=== PATIENT | male | born 1940 | race Caucasian/White ===

== ENCOUNTER 2018-06-20 22:03 | Inpatient (IN) | payer OTHER, MEDICARE ==
--- NOTE | 2018-06-20 23:30 | RADIOLOGY REPORT (SQ) ---
EXAM DESCRIPTION: CT HEAD WITHOUT IV CONTRAST COMPLETED DATE/TME: 06/20/2018 22:48 CLINICAL HISTORY: Pain. 78 years Male, fall COMPARISON: None. TECHNIQUE: No contrast. This exam was performed according to our departmental dose-optimization program, which includes automated exposure control, adjustment of the mA and/or kV according to patient size and/or use of iterative reconstruction technique. FINDINGS: Prominence of the ventricular system probably due to parenchymal volume loss. No hemorrhage or infarct. No mass, mass effect, or midline shift. White matter microangiopathy, parenchymal volume loss, and atherosclerosis. Moderate left sphenoid, ethmoid, and right maxillary mucus and fluid occlusion. Brain and extra-axial structures appear otherwise intact. IMPRESSION: Pansinusitis with air-fluid levels indicating acute inflammatory components. No acute intracranial finding.
[2018-06-20] MEDS ORDERED: ACETAMINOPHEN 325 MG TABLET PO ONE (23:45)
[2018-06-20] MEDS ORDERED: NORMAL SALINE 1000 ML 1,000 ML IV ONE (23:45)
--- NOTE | 2018-06-20 23:46 | ER Document Report ---
ED General - General Chief Complaint: Altered Mental Status Stated Complaint: AMS Time Seen by Provider: 06/20/18 22:48 Primary Care Provider: GERDA TILLEY MD [Primary Care Provider] - Follow up as needed Cannot obtain history due to: Dementia, Altered mental status Notes: Patient is an 78-year-old male with a past medical history of essential hypertension, hyperlipidemia, mild cognitive impairment at baseline, presents with his family due to concerns of increasing altered mental status over the last 24 hours. The patient is visiting from [place]. Family states that he did have influenza approximately a week ago, has not fully recovered since that time. However they do note over the past 24 hours the patient has seemed increasingly confused, disoriented to everything except his name. They state this is not normal for the patient and that normally he would be able to discuss daily events and be oriented x3. The patient himself is unable to provide any meaningful history. Family has not noted anything seems to improve or worsen his symptoms. They cannot recall whether or not he has had similar symptoms in the past. TRAVEL OUTSIDE OF THE [place] IN LAST 30 DAYS: No - Related Data Allergies/Adverse Reactions: No Known Allergies Allergy (Unverified 06/20/18 22:48) Past Medical History - General Information source: Relative - Social History Smoking Status: Never Smoker Chew tobacco use (# tins/day): Yes Frequency of alcohol use: None Drug Abuse: None Lives with: Family Family History: Reviewed & Not Pertinent Patient has suicidal ideation: No Patient has homicidal ideation: No Renal/ Medical History: Denies: Hx Peritoneal Dialysis Review of Systems - Review of Systems Notes: Constitutional: Positive for fever. Positive for confusion HENT: Negative for sore throat. Eyes: Negative for visual changes. Cardiovascular: Negative for chest pain. Respiratory: Negative for shortness of breath. Gastrointestinal: Negative for abdominal pain, vomiting or diarrhea. Genitourinary: Negative for dysuria. Musculoskeletal: Negative for back pain. Skin: Negative for rash. Neurological: Negative for headaches, weakness or numbness. 10 point ROS negative except as marked above and in HPI. Physical Exam - Vital signs Vitals: Pulse Resp BP Pulse Ox 79 24 H 104/62 94 06/20/18 22:25 06/20/18 22:25 06/20/18 22:25 06/20/18 22:25 Interpretation: Tachypneic Notes: PHYSICAL EXAMINATION: GENERAL: Moderately ill in appearance but in no acute distress HEAD: Atraumatic, normocephalic. EYES: Pupils equal round and reactive to light, extraocular movements intact, sclera anicteric, conjunctiva are normal. ENT: nares patent, oropharynx clear without exudates. Moist mucous membranes. NECK: Normal range of motion, supple without lymphadenopathy LUNGS: Breath sounds clear to auscultation bilaterally and equal. No wheezes rales or rhonchi. HEART: Regular tachycardia without murmurs ABDOMEN: Soft, nontender, normoactive bowel sounds. No guarding, no rebound. No masses appreciated. EXTREMITIES: Normal range of motion, no pitting or edema. No cyanosis. NEUROLOGICAL: Face symmetric. Tongue protrudes midline. Extraocular motions intact. Pupils are 2 mm and equally reactive. Normal speech. 5 out of 5 strength in both the distal and proximal upper and lower extremities bilaterally. Sensation is grossly intact throughout. PSYCH: alert, oriented to person only SKIN: Warm, Dry, normal turgor, no rashes or lesions noted. Course - Re-evaluation Re-evalutation: 06/20/18 23:43 Patient presents with family who is concerned that he has had increased altered mental status over the last 24 hours. Patient is not oriented to anything beyond his name which family at the bedside states is not at all normal for him. He has no focal neurologic deficits on exam. The bili did have a fall within the last 1 week and struck his head and neck as well as his left shoulder. X- ray of the shoulder is pending, CT the head without any evidence of any acute intracranial injury. Patient was found to be febrile to 101.1 F indicating a probable infectious etiology of the patient's increasing altered mental status. Urinalysis, chest x-ray, influenza testing, cultures and lactate are all pending. Patient is here visiting from [place], no local primary 06/21/18 02:38 Labs reviewed prominent leukocytosis, urinalysis otherwise clear. No additional findings on laboratory assessment. Flu likewise negative. CT of the head, cervical spine, chest x-ray left shoulder x-ray all unremarkable. CT the head does reveal prominent sinusitis which may be the source of the patient's fever and leukocytosis. The patient is laughing, joking with me. Denies headache or neck pain. Does admit to some sinus fullness. I do not believe he requires a lumbar puncture at this time given the normal mental status, absence of headache or meningismus. I did discuss with Dr. Khadar Lyons who has accepted patient f or admission. Recommends initiation of levofloxacin for sinusitis. - Vital Signs Vital signs: Temp Pulse Resp BP Pulse Ox 98.2 F 79 22 H 116/61 94 06/21/18 01:25 06/20/18 22:25 06/21/18 02:01 06/21/18 02:01 06/21/18 02:01 - Laboratory Result Diagrams: 06/20/18 23:40 06/20/18 23:40 Laboratory results interpreted by me: 06/20/18 06/20/18 06/21/18 23:40 23:40 00:40 WBC 23.4 H RBC 4.08 L Hgb 13.0 L Hct 36.6 L Seg Neuts % (Manual) 83 H Lymphocytes % (Manual) 10 L Abs Neuts (Manual) 19.4 H Abs Basophils (Manual) 0.5 H Sodium 136.7 L Chloride 95 L BUN 24 H Glucose 132 H AST 85 H ALT 86 H Urine Ketones TRACE H Urine Ascorbic Acid 40 H - Diagnostic Test Radiology reviewed: Image reviewed, Reports reviewed Radiology results interpreted by me: 06/21/18 02:38 CT head: No acute intracranial bleed or mass, sinusitis Chest x-ray: No acute infiltrate Discharge - Discharge Clinical Impression: Sepsis Qualifiers: Sepsis type: sepsis due to unspecified organism Qualified Code(s): A41.9 - Se psis, unspecified organism Altered mental status Qualifiers: Altered mental status type: disorientation Qualified Code(s): R41.0 - Disorientation, unspecified Sinusitis Qualifiers: Sinusitis location: unspecified location Chronicity: acute Recurrence: not specified as recurrent Qualified Code(s): J01.90 - Acute sinusitis, unspecified Condition: Fair Disposition: ADMITTED OBSERVATION Admitting Provider: Hospitalist Unit Admitted: Medical Floor Referrals: GERDA TILLEY MD [Primary Care Provider] - Follow up as needed
--- NOTE | 2018-06-20 23:49 | RADIOLOGY REPORT (SQ) ---
EXAM DESCRIPTION: XR SHOULDER 2 OR MORE VIEWS COMPLETED DATE/TME: 06/20/2018 22:48 CLINICAL HISTORY: Pain. 78 years Male, fall COMPARISON: None. Findings: Small osteophytes of the left inferior glenohumeral joint. Bones, joints, and soft tissues of the LEFT XR SHOULDER 2 OR MORE VIEWS appear otherwise unremarkable. Sternotomy. IMPRESSION: No acute findings.
[2018-06-21 00:02] LABS: HEMATOCRIT 36.6 % (37.9-51.0); MEAN CORPUSCULAR HGB CONC 35.6 g/dL (32.0-36.0); MEAN CORPUSCULAR VOLUME 90 fl (80-97); PLATELET COUNT 435 10^3/uL (150-450); RED BLOOD COUNT 4.08 10^6/uL (4.35-5.55); RED CELL DISTRIBUTION WIDTH 13.6 % (11.5-14.0); WHITE BLOOD COUNT 23.4 10^3/uL (4.0-10.5)
--- NOTE | 2018-06-21 00:04 | RADIOLOGY REPORT (SQ) ---
EXAM DESCRIPTION: CT CERVICAL SPINE WITHOUT IV CONTRAST COMPLETED DATE/TME: 06/20/2018 22:48 CLINICAL HISTORY: Pain. 78 years Male, fall Comparison: None. Technique: No contrast. Coronal and sagittal reformat. This exam was performed according to our departmental dose-optimization program, which includes automated exposure control, adjustment of the mA and/or kV according to patient size and/or use of iterative reconstruction technique.[facility]: Dose Right [facility]: CareDose [facility]: Dose Right [facility]: Teradose 4D [facility]: PickUpPal LIMITATIONS: Motion artifact. Findings: Moderate disc bulge at the C5-C6 and C6-C7 levels, moderate mid and lower cervical spondylosis, moderate-severe bilateral C6 and C7 bony foraminal stenosis, right more than left. Deformity of the right mid clavicle indicative of prior injury or motion artifact. Sternotomy. Normal alignment. Normal curvature. No fracture. Normal vertebral heights. Partially imaged nuchal soft tissues, inferior cranium, and upper thorax appear otherwise grossly intact. IMPRESSION: No acute findings.
[2018-06-21 00:12] LABS: ALANINE AMINOTRANSFERASE 86 U/L (21-72); ALBUMIN 3.6 g/dL (3.5-5.0); ALKALINE PHOSPHATASE 97 U/L (38-126); ANION GAP 12 (5-19); ASPARTATE AMINO TRANSFERASE 85 U/L (17-59); BILIRUBIN,DIRECT 0.4 mg/dL (0.0-0.4); BILIRUBIN,TOTAL 1.3 mg/dL (0.2-1.3); BLOOD UREA NITROGEN 24 mg/dL (7-20); CALCIUM 8.9 mg/dL (8.4-10.2); CARBON DIOXIDE 30 mmol/L (22-30); CHLORIDE 95 mmol/L (98-107); CREATINE KINASE 83 U/L (55-170); GLUCOSE 132 mg/dL (75-110); POTASSIUM 3.8 mmol/L (3.6-5.0); SODIUM 136.7 mmol/L (137-145); TOTAL PROTEIN 7.1 g/dL (6.3-8.2)
[2018-06-21 00:44] LABS: ABSOLUTE LYMPHOCYTES# (MANUAL) 2.3 10^3/uL (0.5-4.7); ABSOLUTE MONOCYTES # (MANUAL) 1.2 10^3/uL (0.1-1.4); ABSOLUTE NEUTROPHILS# (MANUAL) 19.4 10^3/uL (1.7-8.2); BASOPHILS % (MANUAL) 2 % (0-2); EOSINOPHILS % (MANUAL) 0 % (0-6); LYMPHOCYTES % (MANUAL) 10 % (13-45); MONOCYTES % (MANUAL) 5 % (3-13); SEGMENTED NEUTROPHILS % (MAN) 83 % (42-78); TOTAL CELLS COUNTED 100
[2018-06-21 00:46] LABS: HELMET CELLS SLIGHT; PLATELET COMMENT ADEQUATE; POIKILOCYTOSIS SLIGHT; TEAR DROP CELLS SLIGHT; TOXIC GRANULATION 1+; TOXIC VACUOLATION PRESENT
[2018-06-21 01:11] LABS: APPEARANCE,URINE CLEAR; BILIRUBIN,URINE NEGATIVE (NEGATIVE); COLOR,URINE YELLOW; GLUCOSE, URINE NEGATIVE (NEGATIVE); KETONES,URINE TRACE mg/dL (NEGATIVE); LEUKOCYTE ESTERASE,URINE NEGATIVE (NEGATIVE); NITRITE,URINE NEGATIVE (NEGATIVE); PROTEIN,URINE NEGATIVE (NEGATIVE); URINE SPECIFIC GRAVITY 1.021; UROBILINOGEN,URINE NEGATIVE mg/dL (<2.0)
[2018-06-21 01:12] LABS: A TYPE INFLUENZA AG NEGATIVE (NEGATIVE); B INFLUENZA AG NEGATIVE (NEGATIVE)
[2018-06-21] MEDS ORDERED: NORMAL SALINE 1000 ML 1,000 ML IV ONE (01:24)
--- NOTE | 2018-06-21 01:32 | RADIOLOGY REPORT (SQ) ---
EXAM DESCRIPTION: XR CHEST 1 VIEW COMPLETED DATE/TME: 06/20/2018 23:45 CLINICAL HISTORY: 78 years Male, fever COMPARISON: None. NUMBER OF VIEWS/TECHNIQUE: 1/AP FINDINGS: Adequate lung volume, clear parenchyma, normal cardiac silhouette, and sternotomy. Cardiac/mediastinal hardware/clips. IMPRESSION: No acute cardiopulmonary findings.
[2018-06-21] MEDS ORDERED: CEFEPIME 2 GM/D5W RTU 2 GM/50 ML RTUPB IV ONE (02:00)
[2018-06-21] MEDS ORDERED: MAG HYDROX/AL HYDROX/SIMETH SUSP 30 ML UDCUP PO PRN (02:35)
[2018-06-21] MEDS ORDERED: MAGNESIUM HYDROXIDE SUSP 30 ML UDCUP PO PRN (02:35)
[2018-06-21] MEDS ORDERED: IPRATROPIUM/ALBUTEROL 0.5-2.5 MG/3 ML AMPUL NEB PRN (02:35)
[2018-06-21] MEDS ORDERED: HYDRALAZINE HCL INJ/PF 20 MG/1 ML SDV IV PRN (02:38)
[2018-06-21] MEDS ORDERED: LEVOFLOXACIN 750 MG/D5W RTU 750 MG/150 ML RTUPB IV ONE (03:00)
--- NOTE | 2018-06-21 04:37 | PDOC H&P ---
History of Present Illness Admission Date/PCP: 06/21/18 03:13 GERDA TILLEY MD Patient complains of: Fever and altered mental status History of Present Illness: RADHA DUBOIS is a 78 year old male with a past medical history of hypertension, dyslipidemia, remote coronary artery bypass graft and dementia. Patient is from [place] visiting family and noted to have mental status changes of the last 24 hours associated with a fever. He is also noted to have rhinorrhea and a postnasal drip. Workup reveals leukocytosis in the 20s. CT reveals pansinusitis with air-fluid levels. He started on empiric antibiotics and referred to the hospitalist for admission. Patient denies recent antibiotic use and complains of fullness in the ears. Past Medical History Cardiac Medical History: Reports: Coronary Artery Disease, Hyperlipidema, Hypertension Psychiatric Medical History: Reports: Dementia Social History Information Source: Patient Lives with: Family Smoking Status: Never Smoker Frequency of Alcohol Use: Rare Drugs: None - Advance Directive Resuscitation Status: Full Code Family History Family History: Hypertension Parental Family History Reviewed: Yes Children Family History Reviewed: Yes Sibling(s) Family History Reviewed.: Yes Medication/Allergy Allergies/Adverse Reactions: No Known Allergies Allergy (Unverified 06/20/18 22:48) Review of Systems Constitutional: ABSENT: chills, fever(s), headache(s), weight gain, weight loss Eyes: ABSENT: visual disturbances Ears: ABSENT: hearing changes Cardiovascular: ABSENT: chest pain, dyspnea on exertion, edema, orthropnea, palpitations Respiratory: ABSENT: cough, hemoptysis Gastrointestinal: ABSENT: abdominal pain, constipation, diarrhea, hematemesis, hematochezia, nausea, vomiting Genitourinary: ABSENT: dysuria, hematuria Musculoskeletal: ABSENT: joint swelling Integumentary: ABSENT: rash, wounds Neurological: ABSENT: abnormal gait, abnormal speech, confusion, dizziness, focal weakness, syncope Psychiatric: ABSENT: anxiety, depression, homidical ideation, suicidal ideation Endocrine: ABSENT: cold intolerance, heat intolerance, polydipsia, polyuria Hematologic/Lymphatic: ABSENT: easy bleeding, easy bruising Physical Exam Vital Signs: Temp Pulse Resp BP Pulse Ox 98.2 F 79 22 H 116/61 94 06/21/18 01:25 06/20/18 22:25 06/21/18 02:01 06/21/18 02:01 06/21/18 02:01 Intake & Output 06/19/18 06/20/18 06/21/18 11:59 11:59 11:59 Intake Total 1000 Balance 1000 Weight 82.7 kg General appearance: PRESENT: no acute distress, well-developed, well-nourished Head exam: PRESENT: atraumatic, normocephalic, other - Discomfort with percussion to the frontal and maxillary sinuses. Eye exam: PRESENT: conjunctiva pink, EOMI, PERRLA. ABSENT: scleral icterus Ear exam: PRESENT: normal external ear exam Mouth exam: PRESENT: moist, tongue midline Neck exam: ABSENT: carotid bruit, JVD, lymphadenopathy, thyromegaly Respiratory exam: PRESENT: clear to auscultation temitope. ABSENT: rales, rhonchi, wheezes Cardiovascular exam: PRESENT: RRR. ABSENT: diastolic murmur, rubs, systolic murmur Pulses: PRESENT: normal dorsalis pedis pul Vascular exam: PRESENT: normal capillary refill GI/Abdominal exam: PRESENT: normal bowel sounds, soft. ABSENT: distended, guarding, mass, organolmegaly, rebound, tenderness Rectal exam: PRESENT: deferred Extremities exam: PRESENT: full ROM. ABSENT: calf tenderness, clubbing, pedal edema Neurological exam: PRESENT: alert, awake, oriented to person, oriented to place, oriented to time, oriented to situation, CN II-XII grossly intact. ABSENT: motor sensory deficit Psychiatric exam: PRESENT: appropriate affect, normal mood. ABSENT: homicidal ideation, suicidal ideation Skin exam: PRESENT: dry, intact, warm. ABSENT: cyanosis, rash Results Laboratory Results: 06/20/18 23:40 06/20/18 23:40 06/20/18 06/20/18 06/20/18 23:40 23:40 23:40 WBC 23.4 H RBC 4.08 L Hgb 13.0 L Hct 36.6 L MCV 90 MCH 32.0 MCHC 35.6 RDW 13.6 Plt Count 435 Seg Neutrophils % Not Reportable Lymphocytes % Not Reportable Monocytes % Not Reportable Eosinophils % Not Reportable Basophils % Not Reportable Absolute Neutrophils Not Reportable Absolute Lymphocytes Not Reportable Absolute Monocytes Not Reportable Absolute Eosinophils Not Reportable Absolute Basophils Not Reportable Sodium 136.7 L Potassium 3.8 Chloride 95 L Carbon Dioxide 30 Anion Gap 12 BUN 24 H Creatinine 1.02 Est GFR ( Amer) > 60 Est GFR (Non-Af Amer) > 60 Glucose 132 H Lactic Acid 1.6 Calcium 8.9 Total Bilirubin 1.3 AST 85 H ALT 86 H Alkaline Phosphatase 97 Total Protein 7.1 Albumin 3.6 Urine Color Urine Appearance Urine pH Ur Specific Portal Urine Protein Urine Glucose (UA) Urine Ketones Urine Blood Urine Nitrite Ur Leukocyte Esterase Urine WBC (Auto) Urine RBC (Auto) 06/21/18 00:40 WBC RBC Hgb Hct MCV MCH MCHC RDW Plt Count Seg Neutrophils % Lymphocytes % Monocytes % Eosinophils % Basophils % Absolute Neutrophils Absolute Lymphocytes Absolute Monocytes Absolute Eosinophils Absolute Basophils Sodium Potassium Chloride Carbon Dioxide Anion Gap BUN Creatinine Est GFR ( Amer) Est GFR (Non-Af Amer) Glucose Lactic Acid Calcium Total Bilirubin AST ALT Alkaline Phosphatase Total Protein Albumin Urine Color YELLOW Urine Appearance CLEAR Urine pH 6.0 Ur Specific Portal 1.021 Urine Protein NEGATIVE Urine Glucose (UA) NEGATIVE Urine Ketones TRACE H Urine Blood NEGATIVE Urine Nitrite NEGATIVE Ur Leukocyte Esterase NEGATIVE Urine WBC (Auto) 0 Urine RBC (Auto) 0 06/20/18 06/20/18 23:40 23:40 Creatine Kinase 83 Troponin I < 0.012 Impressions: Cervical Spine CT 06/20/18 22:48 IMPRESSION: No acute findings. Head CT 06/20/18 22:48 IMPRESSION: Pansinusitis with air-fluid levels indicating acute inflammatory components. No acute intracranial finding. Shoulder X-Ray 06/20/18 22:48 IMPRESSION: No acute findings. Chest X-Ray 06/20/18 23:45 IMPRESSION: No acute cardiopulmonary findings. Assessment and Plan - Diagnosis (1) Sinusitis Qualifiers: Sinusitis location: unspecified location Chronicity: acute Recurrence: not specified as recurrent Qualified Code(s): J01.90 - Acute sinusitis, unspecified Is this a current diagnosis for this admission?: Yes Plan: Pansinusitis, no recent antibiotics, Levaquin initiated empirically. Follow-up blood and sputum culture (2) Sepsis Qualifiers: Sepsis type: sepsis due to unspecified organism Qualified Code(s): A41.9 - Sepsis, unspecified organism Is this a current diagnosis for this admission?: Yes Plan: Likely secondary to #1, follow-up lactic acid and blood culture. (3) Altered mental status Qualifiers: Altered mental status type: disorientation Qualified Code(s): R41.0 - Disorientation, unspecified Is this a current diagnosis for this admission?: Yes Plan: Complicated by baseline dementia, likely secondary to #1, supportive care - Time Time Spent with patient: 25-34 minutes - Inpatient Certification Medical Necessity: Need Close Monitoring Due to Risk of Patient Decompensation
[2018-06-21 06:35] LABS: ABSOLUTE BASOPHILS # (AUTO) 0.1 10^3/uL (0.0-0.2); ABSOLUTE LYMPHOCYTES (AUTO) 1.7 10^3/uL (0.5-4.7); ABSOLUTE MONOCYTES (AUTO) 1.2 10^3/uL (0.1-1.4); ABSOLUTE NEUT (AUTO) 13.8 10^3/uL (1.7-8.2); BASOPHILS % (AUTO) 0.4 % (0-2); EOSINOPHILS % (AUTO) 0.3 % (0-6); HEMATOCRIT 32.8 % (37.9-51.0); HEMOGLOBIN 11.7 g/dL (13.5-17.0); LYMPHOCYTES % (AUTO) 10.3 % (13-45); MEAN CORPUSCULAR HEMOGLOBIN 31.8 pg (27.0-33.4); MEAN CORPUSCULAR HGB CONC 35.6 g/dL (32.0-36.0); MEAN CORPUSCULAR VOLUME 90 fl (80-97); PLATELET COUNT 352 10^3/uL (150-450); RED BLOOD COUNT 3.66 10^6/uL (4.35-5.55); RED CELL DISTRIBUTION WIDTH 13.8 % (11.5-14.0); TOTAL CELLS COUNTED % (AUTO) 100 %; WHITE BLOOD COUNT 16.8 10^3/uL (4.0-10.5)
[2018-06-21] MEDS: CHLORPHENIRAMINE MALEATE 4 MG TABLET PO SCH ×3 (07:32→17:24)
[2018-06-21] MEDS: HEPARIN SOD (PORCINE) 5,000 UNIT/ML 1 ML SYRINGE SUBCUT SCH ×3 (07:35→21:47)
[2018-06-21] MEDS: IPRATROPIUM/ALBUTEROL 0.5-2.5 MG/3 ML AMPUL NEB SCH ×2 (07:47→16:06)
[2018-06-21] MEDS: ASPIRIN 325 MG TABLET, ENT COATED PO SCH (09:41)
[2018-06-21] MEDS: CARVEDILOL 6.25 MG TABLET PO SCH ×2 (09:41→21:47)
[2018-06-21] MEDS: OMEGA-3 ACID ETHYL ESTERS 1 GM CAPSULE PO SCH ×2 (09:41→17:24)
[2018-06-21] MEDS: DOCUSATE SODIUM 100 MG CAPSULE PO SCH ×2 (09:41→17:24)
[2018-06-21] MEDS: CLOPIDOGREL BISULFATE 75 MG TABLET PO SCH (09:41)
--- NOTE | 2018-06-21 09:48 | EKG REPORT ---
SEVERITY:- ABNORMAL ECG - SINUS RHYTHM ATRIAL PREMATURE COMPLEX PROBABLE LEFT ATRIAL ABNORMALITY INCOMPLETE RIGHT BUNDLE BRANCH BLOCK PROBABLE INFERIOR INFARCT, AGE INDETERMINATE : Confirmed by: Brooke Mccain MD 21-Jun-2018 09:48:11
[2018-06-21] MEDS: FLUTICASONE NASAL SPRAY 50 MCG/SPRY 120 SPRAY/16 GM NASL SCH ×2 (09:50→21:47)
[2018-06-21] MEDS: ACETAMINOPHEN 325 MG TABLET PO PRN (15:56)
[2018-06-21] MEDS ORDERED: KETOROLAC TROMETHAMINE INJ/PF 30 MG/1 ML SDV IV PRN (19:30)
--- NOTE | 2018-06-21 19:35 | Progress Note ---
Provider Note Provider Note: RADHA DUBOIS is a 78 year old male with a past medical history of hypertension, dyslipidemia, remote coronary artery bypass graft and dementia admitted early this morning by the [employer] INSPECTOR for Sepsis secondary to Sinusitis. Overnight events, imaging, and laboratory results reviewed. Agree with the plan of care as established by the previous provider. (1) Sinusitis Pansinusitis w/ air-fluid levels noted on Head CT. Levaquin initiated empirically; WBC trending down, continues to be febrile and encephalopathic. Continue Flonase and Chlorpheniramine Tylenol as needed for fever/discomfort. Toradol as needed for moderate pain. Avoid narcotics as able secondary to AMS. Blood and sputum culture pending. (2) Sepsis Likely secondary to #1 Lactic acid 1.6-> 0.8 Cultures and antibiotics as above. (3) Altered mental status Complicated by baseline dementia, likely secondary to #1, supportive care
[2018-06-21] MEDS: SIMVASTATIN 40 MG TABLET PO SCH (21:47)
[2018-06-22] MEDS: IPRATROPIUM/ALBUTEROL 0.5-2.5 MG/3 ML AMPUL NEB SCH ×4 (00:05→19:52)
[2018-06-22 05:40] LABS: ABSOLUTE BASOPHILS # (AUTO) 0.1 10^3/uL (0.0-0.2); ABSOLUTE LYMPHOCYTES (AUTO) 1.7 10^3/uL (0.5-4.7); ABSOLUTE NEUT (AUTO) 13.3 10^3/uL (1.7-8.2); BASOPHILS % (AUTO) 0.5 % (0-2); EOSINOPHILS % (AUTO) 0.3 % (0-6); HEMATOCRIT 34.1 % (37.9-51.0); HEMOGLOBIN 11.9 g/dL (13.5-17.0); LYMPHOCYTES % (AUTO) 10.8 % (13-45); MEAN CORPUSCULAR HEMOGLOBIN 31.4 pg (27.0-33.4); MEAN CORPUSCULAR HGB CONC 35.1 g/dL (32.0-36.0); MEAN CORPUSCULAR VOLUME 90 fl (80-97); MONOCYTES % (AUTO) 6.4 % (3-13); PLATELET COUNT 405 10^3/uL (150-450); RED CELL DISTRIBUTION WIDTH 13.6 % (11.5-14.0); TOTAL CELLS COUNTED % (AUTO) 100 %; WHITE BLOOD COUNT 16.2 10^3/uL (4.0-10.5)
[2018-06-22] MEDS: HEPARIN SOD (PORCINE) 5,000 UNIT/ML 1 ML SYRINGE SUBCUT SCH ×3 (05:54→22:44)
[2018-06-22] MEDS: CHLORPHENIRAMINE MALEATE 4 MG TABLET PO SCH (05:55)
[2018-06-22 06:03] LABS: ANION GAP 12 (5-19); BLOOD UREA NITROGEN 16 mg/dL (7-20); CALCIUM 8.5 mg/dL (8.4-10.2); CARBON DIOXIDE 27 mmol/L (22-30); CHLORIDE 98 mmol/L (98-107); GLUCOSE 105 mg/dL (75-110); POTASSIUM 3.9 mmol/L (3.6-5.0); SODIUM 136.6 mmol/L (137-145)
[2018-06-22] MEDS ORDERED: LEVOFLOXACIN 750 MG/D5W RTU 750 MG/150 ML RTUPB IV SCH (08:00)
[2018-06-22] MEDS: DOCUSATE SODIUM 100 MG CAPSULE PO SCH ×2 (09:50→17:10)
[2018-06-22] MEDS: ASPIRIN 325 MG TABLET, ENT COATED PO SCH (09:52)
[2018-06-22] MEDS: OMEGA-3 ACID ETHYL ESTERS 1 GM CAPSULE PO SCH ×2 (09:52→17:13)
[2018-06-22] MEDS: CLOPIDOGREL BISULFATE 75 MG TABLET PO SCH (09:52)
[2018-06-22] MEDS: CARVEDILOL 6.25 MG TABLET PO SCH ×2 (09:52→22:44)
[2018-06-22] MEDS: FLUTICASONE NASAL SPRAY 50 MCG/SPRY 120 SPRAY/16 GM NASL SCH ×2 (10:09→22:43)
--- NOTE | 2018-06-22 17:25 | PDOC PROGRESS REPORT ---
Subjective Progress Note for:: 06/22/18 Subjective:: RADHA DUBOIS is a 78 year old male with a past medical history of hypertension, dyslipidemia, remote coronary artery bypass graft and dementia admitted 06/21/2018 for sepsis secondary to sinusitis. The patient was seen on afternoon rounds; no family members were present. He was found resting in bed comfortably on room air. He is awake, alert, and oriented to self only. He is conversationally appropriate and pleasantly confused. He tells me that he is feeling fine and has no complaints today. He denies fever, headache, facial pain, chest pain, difficulty breathing, cough, and shoulder pain. He has no questions at this time. Per nursing, the patient has continued to complain of intermittent shoulder pain with mobility but otherwise has been much improved today. Nursing reports increased alertness, conversational, more easily reoriented/redirected, without impulsivity as noted yesterday. Reason For Visit: SEPSIS,ACUTE ENCEPHALOPHATHY,SINUSITIS Physical Exam Vital Signs: Temp Pulse Resp BP Pulse Ox 98.7 F 78 17 112/61 95 06/22/18 15:50 06/22/18 15:50 06/22/18 15:50 06/22/18 15:50 06/22/18 15:50 Intake & Output 06/21/18 06/22/18 06/23/18 06:59 06:59 06:59 Intake Total 2049 550 150 Output Total 20 Balance 2049 530 150 Weight 83.6 kg 84.1 kg 84.1 kg General appearance: PRESENT: no acute distress, well-developed, well-nourished Head exam: PRESENT: atraumatic, normocephalic Eye exam: PRESENT: conjunctiva pink, EOMI, PERRLA. ABSENT: scleral icterus Mouth exam: PRESENT: moist, tongue midline Teeth exam: PRESENT: poor dentation Respiratory exam: PRESENT: clear to auscultation temitope, symmetrical, unlabored. ABSENT: rales, rhonchi, wheezes Cardiovascular exam: PRESENT: RRR. ABSENT: diastolic murmur, rubs, systolic murmur Pulses: PRESENT: normal dorsalis pedis pul Vascular exam: PRESENT: normal capillary refill GI/Abdominal exam: PRESENT: normal bowel sounds, soft. ABSENT: distended, guarding, mass, organolmegaly, rebound, tenderness Rectal exam: PRESENT: deferred Extremities exam: PRESENT: full ROM. ABSENT: calf tenderness, clubbing, pedal edema Neurological exam: PRESENT: alert, awake, oriented to person, CN II-XII grossly intact, other - Pleasantly confused. ABSENT: oriented to place, oriented to time, oriented to situation, motor sensory deficit Psychiatric exam: PRESENT: appropriate affect, normal mood. ABSENT: homicidal ideation, suicidal ideation Skin exam: PRESENT: dry, intact, warm. ABSENT: cyanosis, rash Results Laboratory Results: 06/22/18 04:25 06/22/18 04:25 06/22/18 06/22/18 04:25 04:25 WBC 16.2 H RBC 3.80 L Hgb 11.9 L Hct 34.1 L MCV 90 MCH 31.4 MCHC 35.1 RDW 13.6 Plt Count 405 Seg Neutrophils % 82.0 H Lymphocytes % 10.8 L Monocytes % 6.4 Eosinophils % 0.3 Basophils % 0.5 Absolute Neutrophils 13.3 H Absolute Lymphocytes 1.7 Absolute Monocytes 1.0 Absolute Eosinophils 0.0 Absolute Basophils 0.1 Sodium 136.6 L Potassium 3.9 Chloride 98 Carbon Dioxide 27 Anion Gap 12 BUN 16 Creatinine 0.81 Est GFR ( Amer) > 60 Est GFR (Non-Af Amer) > 60 Glucose 105 Calcium 8.5 06/20/18 06/20/18 23:40 23:40 Creatine Kinase 83 Troponin I < 0.012 Impressions: Cervical Spine CT 06/20/18 22:48 IMPRESSION: No acute findings. Head CT 06/20/18 22:48 IMPRESSION: Pansinusitis with air-fluid levels indicating acute inflammatory components. No acute intracranial finding. Shoulder X-Ray 06/20/18 22:48 IMPRESSION: No acute findings. Chest X-Ray 06/20/18 23:45 IMPRESSION: No acute cardiopulmonary findings. Assessment and Plan - Diagnosis (1) Sinusitis Qualifiers: Sinusitis location: unspecified location Chronicity: acute Recurrence: not specified as recurrent Qualified Code(s): J01.90 - Acute sinusitis, unspecified Is this a current diagnosis for this admission?: Yes Plan: Improved; patient is now comfortable, afebrile x 24 hours, WBC trending down. Blood cultures negative at 24 hours. Sputum cultures ordered and not yet obtained. Patient was admitted to the medical floor. He was empirically placed on IV Levaquin; have transition to p.o. today. Day #2 Continue Flonase and Chlorpheniramine. [place] as needed. Tylenol as needed for fever/discomfort. Toradol as needed for moderate pain. Avoid narcotics as able secondary to AMS. (2) Sepsis Qualifiers: Sepsis type: sepsis due to unspecified organism Qualified Code(s): A41.9 - Sepsis, unspecified organism Is this a current diagnosis for this admission?: Yes Plan: Improved; patient has been afebrile times 24 hours, leukocytosis is trending down, clinically improved with increased orientation. Sepsis due to sinusitis, present on admission, evidenced by acute encephalopathy, fever (101), tachypnea (RR 25), leukocytosis (WBCs 23K) and acutely ill/toxic appearance. Blood cultures have no growth at 24 hours. Urinalysis is negative for UTI; urine culture negative at 1 day. Chest x-ray is benign. Lactic acid 1.6-> 0.8 Antibiotics as above. (3) Leukocytosis Is this a current diagnosis for this admission?: Yes Plan: Secondary to #1. Cultures and antibiotics as above. (4) Acute encephalopathy Is this a current diagnosis for this admission?: Yes Plan: Acute encephalopathy secondary to sepsis and sinusitis in the setting of dementia. Improved; patient is now oriented to self, conversationally appropriate, easily reoriented and redirected as compared to yesterday when he was impulsive and incoherent. Continue to provide supportive care. Fall precautions. (5) Dementia Is this a current diagnosis for this admission?: Yes Plan: Patient's family member endorses baseline dementia. Recommend outpatient neurology follow-up. Fall and safety precautions. Discharge planning is consulted. - Time Time Spent with patient: 15-24 minutes Medications reviewed and adjusted accordingly: Yes Anticipated discharge: Home with Homehealth Within: within 24 hours
[2018-06-22] MEDS: SODIUM CHLORIDE NASAL SPRAY 44 ML NASL SCH (22:43)
[2018-06-22] MEDS: SIMVASTATIN 40 MG TABLET PO SCH (22:44)
[2018-06-23] MEDS: HEPARIN SOD (PORCINE) 5,000 UNIT/ML 1 ML SYRINGE SUBCUT SCH ×3 (05:42→22:07)
[2018-06-23 05:46] LABS: HEMATOCRIT 33.7 % (37.9-51.0); HEMOGLOBIN 11.7 g/dL (13.5-17.0); MEAN CORPUSCULAR HEMOGLOBIN 31.2 pg (27.0-33.4); MEAN CORPUSCULAR HGB CONC 34.7 g/dL (32.0-36.0); MEAN CORPUSCULAR VOLUME 90 fl (80-97); PLATELET COUNT 410 10^3/uL (150-450); RED BLOOD COUNT 3.75 10^6/uL (4.35-5.55); RED CELL DISTRIBUTION WIDTH 13.5 % (11.5-14.0); WHITE BLOOD COUNT 15.6 10^3/uL (4.0-10.5)
[2018-06-23] MEDS: IPRATROPIUM/ALBUTEROL 0.5-2.5 MG/3 ML AMPUL NEB SCH ×2 (08:14→22:59)
[2018-06-23] MEDS: ASPIRIN 325 MG TABLET, ENT COATED PO SCH (09:01)
[2018-06-23] MEDS: CLOPIDOGREL BISULFATE 75 MG TABLET PO SCH (09:01)
[2018-06-23] MEDS: CARVEDILOL 6.25 MG TABLET PO SCH ×2 (09:01→22:07)
[2018-06-23] MEDS: FLUTICASONE NASAL SPRAY 50 MCG/SPRY 120 SPRAY/16 GM NASL SCH ×2 (09:02→22:07)
[2018-06-23] MEDS: DOCUSATE SODIUM 100 MG CAPSULE PO SCH ×2 (09:02→16:59)
[2018-06-23] MEDS: OMEGA-3 ACID ETHYL ESTERS 1 GM CAPSULE PO SCH ×2 (09:02→16:59)
[2018-06-23] MEDS: SODIUM CHLORIDE NASAL SPRAY 44 ML NASL SCH ×4 (09:02→22:07)
[2018-06-23] MEDS: LEVOFLOXACIN 750 MG TABLET PO SCH (09:06)
[2018-06-23] MEDS: ACETAMINOPHEN 325 MG TABLET PO PRN (09:06)
[2018-06-23] MEDS ORDERED: KETOROLAC TROMETHAMINE INJ/PF 30 MG/1 ML SDV IV PRN (10:00)
--- NOTE | 2018-06-23 17:32 | PDOC PROGRESS REPORT ---
Subjective Progress Note for:: 06/23/18 Subjective:: RADHA DUBOIS is a 78 year old male with a past medical history of hypertension, dyslipidemia, remote coronary artery bypass graft and dementia admitted 06/21/2018 for sepsis secondary to sinusitis. The patient was seen on morning rounds with his [id number] present. He was found sitting up to the recliner, comfortably on room air. He is awake, alert, and oriented to self only. He is conversationally appropriate and pleasantly confused. He tells me that he is feeling fine and has no complaints today. However, he is noted to be grimacing and restless. He later reports that his right knee is bothering him. Overall, he reports that he is feeling well and has no questions or concerns. He denies fever, headache, facial pain, chest pain, difficulty breathing, cough, and shoulder pain. Family has questions regarding short term SNF placement, otherwise no new concerns. No concerns per nursing. Reason For Visit: SEPSIS,ACUTE ENCEPHALOPHATHY,SINUSITIS Physical Exam Vital Signs: Temp Pulse Resp BP Pulse Ox 99.2 F 84 16 120/56 L 94 06/22/18 23:11 06/23/18 08:14 06/23/18 08:14 06/22/18 23:11 06/23/18 08:14 Intake & Output 06/22/18 06/23/18 06/24/18 06:59 06:59 06:59 Intake Total 550 953 Output Total 20 Balance 530 953 Weight 84.1 kg 84.2 kg General appearance: PRESENT: no acute distress, well-developed, well-nourished Head exam: PRESENT: atraumatic, normocephalic Eye exam: PRESENT: conjunctiva pink, EOMI, PERRLA. ABSENT: scleral icterus Mouth exam: PRESENT: moist, tongue midline Teeth exam: PRESENT: poor dentation Neck exam: ABSENT: carotid bruit, JVD, lymphadenopathy, thyromegaly Respiratory exam: PRESENT: clear to auscultation temitope, symmetrical, unlabored. ABSENT: rales, rhonchi, wheezes Cardiovascular exam: PRESENT: RRR. ABSENT: diastolic murmur, rubs, systolic murmur Pulses: PRESENT: normal dorsalis pedis pul Vascular exam: PRESENT: normal capillary refill GI/Abdominal exam: PRESENT: normal bowel sounds, soft. ABSENT: distended, guarding, mass, organolmegaly, rebound, tenderness Rectal exam: PRESENT: deferred Extremities exam: PRESENT: full ROM. ABSENT: calf tenderness, clubbing, pedal edema Neurological exam: PRESENT: alert, awake, oriented to person, oriented to place, CN II-XII grossly intact, other - Pleasantly confused; easily redirected. ABSENT: motor sensory deficit Psychiatric exam: PRESENT: appropriate affect, normal mood. ABSENT: homicidal ideation, suicidal ideation Skin exam: PRESENT: dry, intact, warm. ABSENT: cyanosis, rash Results Laboratory Results: 06/23/18 04:30 06/22/18 04:25 06/23/18 04:30 WBC 15.6 H RBC 3.75 L Hgb 11.7 L Hct 33.7 L MCV 90 MCH 31.2 MCHC 34.7 RDW 13.5 Plt Count 410 06/21/18 00:40 Catheterized Urine Urine Culture - Final NO GROWTH 2 DAYS 06/20/18 06/20/18 23:40 23:40 Creatine Kinase 83 Troponin I < 0.012 Impressions: Cervical Spine CT 06/20/18 22:48 IMPRESSION: No acute findings. Head CT 06/20/18 22:48 IMPRESSION: Pansinusitis with air-fluid levels indicating acute inflammatory components. No acute intracranial finding. Shoulder X-Ray 06/20/18 22:48 IMPRESSION: No acute findings. Chest X-Ray 06/20/18 23:45 IMPRESSION: No acute cardiopulmonary findings. Assessment and Plan - Diagnosis (1) Sinusitis Qualifiers: Sinusitis location: unspecified location Chronicity: acute Recurrence: not specified as recurrent Qualified Code(s): J01.90 - Acute sinusitis, unspecified Is this a current diagnosis for this admission?: Yes Plan: Improved; patient is now comfortable, afebrile x 36 hours, WBC trending down. Blood cultures negative at 48 hours. Sputum cultures ordered and not yet obtained. Patient was admitted to the medical floor. He was empirically placed on IV Levaquin; have transition to oral. Day #3 Continue Flonase. [place] as needed. Tylenol as needed for fever/discomfort. Tramadol as needed for moderate pain. Avoid narcotics as able secondary to AMS. (2) Sepsis Qualifiers: Sepsis type: sepsis due to unspecified organism Qualified Code(s): A41.9 - Sepsis, unspecified organism Is this a current diagnosis for this admission?: Yes Plan: Improved; patient has been afebrile x36 hours, leukocytosis is trending down, clinically improved with increased orientation. Sepsis due to sinusitis, present on admission, evidenced by acute encephalopathy, fever (101), tachypnea (RR 25), leukocytosis (WBCs 23K) and acutely ill/toxic appearance. Blood cultures have no growth at 48 hours. Urinalysis is negative for UTI; urine culture negative at 2 day. Chest x-ray is benign. Lactic acid 1.6-> 0.8 Antibiotics as above. (3) Leukocytosis Is this a current diagnosis for this admission?: Yes Plan: Secondary to #1. Cultures and antibiotics as above. (4) Acute encephalopathy Is this a current diagnosis for this admission?: Yes Plan: Acute encephalopathy secondary to sepsis and sinusitis in the setting of dementia. Improved; patient is now oriented to self, conversationally appropriate, easily reoriented and redirected as compared to progress day #1 when he was impulsive and incoherent. Continue to provide supportive care. Fall precautions. (5) Dementia Is this a current diagnosis for this admission?: Yes Plan: Patient's family member endorses baseline dementia. Recommend outpatient neurology follow-up. Fall and safety precautions. Discharge planning is consulted. (6) Debility Is this a current diagnosis for this admission?: Yes Plan: Secondary to acute illness and acute encephalopathy. At baseline, patient is independently ambulatory to the restroom with cane; he is currently requiring 2 person moderate assist for transfers. Requires consistent prompting and redirecting to maintain safety/stability. Patient's family member is interested in short-term SNF as she is the only caregiver available at this time (patient's son is [place] for business trip). Did offer home health nursing, physical therapy, occupational therapy, and aide services; family member reports she can't provide fr mobility needs at home. Physical therapy has been consulted; appreciate their evaluation recommendati ons. Discharge planning is consulted. - Time Time Spent with patient: 25-34 minutes Medications reviewed and adjusted accordingly: Yes Anticipated discharge: SNF Within: when bed available
[2018-06-23] MEDS: SIMVASTATIN 40 MG TABLET PO SCH (22:07)
[2018-06-24] MEDS: TRAMADOL HCL 50 MG TABLET PO PRN (03:44)
[2018-06-24] MEDS: HEPARIN SOD (PORCINE) 5,000 UNIT/ML 1 ML SYRINGE SUBCUT SCH ×2 (05:42→14:07)
[2018-06-24] MEDS: SODIUM CHLORIDE NASAL SPRAY 44 ML NASL SCH ×3 (08:39→16:56)
[2018-06-24] MEDS: IPRATROPIUM/ALBUTEROL 0.5-2.5 MG/3 ML AMPUL NEB SCH (09:00)
[2018-06-24] MEDS: CLOPIDOGREL BISULFATE 75 MG TABLET PO SCH (10:22)
[2018-06-24] MEDS: DOCUSATE SODIUM 100 MG CAPSULE PO SCH ×2 (10:22→17:25)
[2018-06-24] MEDS: LEVOFLOXACIN 750 MG TABLET PO SCH (10:22)
[2018-06-24] MEDS: CARVEDILOL 6.25 MG TABLET PO SCH (10:22)
[2018-06-24] MEDS: OMEGA-3 ACID ETHYL ESTERS 1 GM CAPSULE PO SCH ×2 (10:22→17:23)
[2018-06-24] MEDS: ASPIRIN 325 MG TABLET, ENT COATED PO SCH (10:22)
[2018-06-24] MEDS: FLUTICASONE NASAL SPRAY 50 MCG/SPRY 120 SPRAY/16 GM NASL SCH (10:23)
--- NOTE | 2018-06-24 16:16 | PDOC PROGRESS REPORT ---
Subjective Progress Note for:: 06/24/18 Subjective:: RADHA DUBOIS is a 78 year old male with a past medical history of hypertension, dyslipidemia, remote coronary artery bypass graft and dementia admitted 06/21/2018 for sepsis secondary to sinusitis. The patient was seen on morning rounds. He was found resting in bed comfortably on room air. He was sleeping, but woke easily when I entered the room. He is conversationally appropriate and pleasantly confused; slightly more so than yesterday (although is just waking up). He tells me that he is feeling well denies all complaints. He denies fever, headache, facial pain, chest pain, difficulty breathing, cough, and shoulder pain. No concerns per nursing. Reason For Visit: SEPSIS,ACUTE ENCEPHALOPHATHY,SINUSITIS Physical Exam Vital Signs: Temp Pulse Resp BP Pulse Ox 97.3 F 88 16 110/59 L 94 06/24/18 11:21 06/24/18 11:21 06/24/18 11:21 06/24/18 11:21 06/24/18 11:21 Intake & Output 06/23/18 06/24/18 06/25/18 06:59 06:59 06:59 Intake Total 953 1105 Balance 953 1105 Weight 84.2 kg 85.4 kg General appearance: PRESENT: no acute distress, hard of hearing, well-developed, well-nourished Head exam: PRESENT: atraumatic, normocephalic Eye exam: PRESENT: conjunctiva pink, EOMI, PERRLA. ABSENT: scleral icterus Mouth exam: PRESENT: moist, tongue midline Teeth exam: PRESENT: poor dentation Neck exam: ABSENT: carotid bruit, JVD, lymphadenopathy, thyromegaly Respiratory exam: PRESENT: clear to auscultation temitope, symmetrical, unlabored. ABSENT: rales, rhonchi, wheezes Cardiovascular exam: PRESENT: RRR. ABSENT: diastolic murmur, rubs, systolic murmur Pulses: PRESENT: normal dorsalis pedis pul Vascular exam: PRESENT: normal capillary refill GI/Abdominal exam: PRESENT: normal bowel sounds, soft. ABSENT: distended, guarding, mass, organolmegaly, rebound, tenderness Rectal exam: PRESENT: deferred Extremities exam: PRESENT: full ROM. ABSENT: calf tenderness, clubbing, pedal edema Neurological exam: PRESENT: alert, awake, oriented to person, CN II-XII grossly intact, other - Pleasantly confused, socially appropriate. ABSENT: oriented to place, oriented to time, oriented to situation, motor sensory deficit Psychiatric exam: PRESENT: appropriate affect, normal mood. ABSENT: homicidal ideation, suicidal ideation Skin exam: PRESENT: dry, intact, warm. ABSENT: cyanosis, rash Results Laboratory Results: 06/23/18 04:30 06/22/18 04:25 06/20/18 06/20/18 23:40 23:40 Creatine Kinase 83 Troponin I < 0.012 Impressions: Cervical Spine CT 06/20/18 22:48 IMPRESSION: No acute findings. Head CT 06/20/18 22:48 IMPRESSION: Pansinusitis with air-fluid levels indicating acute inflammatory components. No acute intracranial finding. Shoulder X-Ray 06/20/18 22:48 IMPRESSION: No acute findings. Chest X-Ray 06/20/18 23:45 IMPRESSION: No acute cardiopulmonary findings. Assessment and Plan - Diagnosis (1) Sinusitis Qualifiers: Sinusitis location: unspecified location Chronicity: acute Recurrence: not specified as recurrent Qualified Code(s): J01.90 - Acute sinusitis, unspecified Is this a current diagnosis for this admission?: Yes Plan: Improved; patient is now comfortable, afebrile >48 hours, WBC trending down. Blood cultures negative at 72 hours. Patient was admitted to the medical floor. He was empirically placed on IV Levaquin; have transition to oral. Day #4 Continue Flonase. [place] as needed. Tylenol as needed for fever/discomfort. Tramadol as needed for moderate pain. Avoid narcotics as able secondary to AMS. (2) Sepsis Qualifiers: Sepsis type: sepsis due to unspecified organism Qualified Code(s): A41.9 - Sepsis, unspecified organism Is this a current diagnosis for this admission?: Yes Plan: Resolved. Patient has been afebrile >48 hours, leukocytosis is trending down, clinically improved with increased orientation. Sepsis due to sinusitis, present on admission, evidenced by acute encephalopathy, fever (101), tachypnea (RR 25), leukocytosis (WBCs 23K) and acutely ill/toxic appearance. Blood cultures have no growth at 72 hours. Urinalysis is negative for UTI; urine culture negative at 2 day. Chest x-ray is benign. Lactic acid 1.6-> 0.8 Antibiotics as above. (3) Leukocytosis Is this a current diagnosis for this admission?: Yes Plan: Secondary to #1; trending down and no longer following. Cultures and antibiotics as above. (4) Acute encephalopathy Is this a current diagnosis for this admission?: Yes Plan: Acute metabolic encephalopathy secondary to sepsis and sinusitis in the setting of dementia. Possibly worsened and/or prolonged resolution secondary to hospital environment (unfamiliar environment, poor sleep, etc). Improved; patient is now oriented to self, conversationally appropriate, easily reoriented and redirected as compared to progress day #1 when he was impulsive and incoherent. Not yet at baseline per family members who report that he is generally A&O to self and place, conversational, and capable of most ADLs independently. Continue to provide supportive care. Fall precautions. (5) Dementia Is this a current diagnosis for this admission?: Yes Plan: Patient's family member endorses baseline dementia. Recommend outpatient neurology follow-up. Fall and safety precautions. Discharge planning is consulted. (6) Debility Is this a current diagnosis for this admission?: Yes Plan: Secondary to acute illness and acute encephalopathy. At baseline, patient is independently ambulatory to the restroom with cane; he is currently requiring 2 person moderate assist for transfers. Requires consistent prompting and redirecting to maintain safety/stability. Patient's family member is interested in short-term SNF as she is the only caregiver available at this time (patient's son is overseas for business trip). Did offer home health nursing, physical therapy, occupational therapy, and aide services; family member reports she can't provide for mobility needs at home. Physical therapy has been consulted; appreciate their evaluation recommendations. Discharge planning is consulted. - Time Time Spent with patient: 15-24 minutes Medications reviewed and adjusted accordingly: Yes Anticipated discharge: SNF Within: when bed available
[2018-06-25] MEDS: HEPARIN SOD (PORCINE) 5,000 UNIT/ML 1 ML SYRINGE SUBCUT SCH ×4 (00:05→21:03)
[2018-06-25] MEDS: TRAMADOL HCL 50 MG TABLET PO PRN ×4 (00:05→21:04)
[2018-06-25] MEDS: CARVEDILOL 6.25 MG TABLET PO SCH ×3 (00:05→21:03)
[2018-06-25] MEDS: SIMVASTATIN 40 MG TABLET PO SCH ×2 (00:07→21:03)
[2018-06-25] MEDS: SODIUM CHLORIDE NASAL SPRAY 44 ML NASL SCH ×5 (00:07→21:05)
[2018-06-25] MEDS: FLUTICASONE NASAL SPRAY 50 MCG/SPRY 120 SPRAY/16 GM NASL SCH ×3 (00:07→21:05)
[2018-06-25] MEDS: LEVOFLOXACIN 750 MG TABLET PO SCH (10:18)
[2018-06-25] MEDS: DOCUSATE SODIUM 100 MG CAPSULE PO SCH ×2 (10:18→17:54)
[2018-06-25] MEDS: ASPIRIN 325 MG TABLET, ENT COATED PO SCH (10:18)
[2018-06-25] MEDS: CLOPIDOGREL BISULFATE 75 MG TABLET PO SCH (10:18)
[2018-06-25] MEDS: OMEGA-3 ACID ETHYL ESTERS 1 GM CAPSULE PO SCH ×2 (10:18→17:54)
[2018-06-25 10:41] LABS: HEMATOCRIT 34.8 % (37.9-51.0); HEMOGLOBIN 11.9 g/dL (13.5-17.0); MEAN CORPUSCULAR HEMOGLOBIN 31.4 pg (27.0-33.4); MEAN CORPUSCULAR HGB CONC 34.3 g/dL (32.0-36.0); MEAN CORPUSCULAR VOLUME 92 fl (80-97); PLATELET COUNT 497 10^3/uL (150-450); RED CELL DISTRIBUTION WIDTH 13.8 % (11.5-14.0); WHITE BLOOD COUNT 16.2 10^3/uL (4.0-10.5)
[2018-06-25 10:56] LABS: ANION GAP 8 (5-19); BLOOD UREA NITROGEN 20 mg/dL (7-20); CARBON DIOXIDE 29 mmol/L (22-30); CHLORIDE 99 mmol/L (98-107); GLUCOSE 165 mg/dL (75-110); POTASSIUM 4.9 mmol/L (3.6-5.0); SODIUM 135.5 mmol/L (137-145); URIC ACID 4.4 mg/dL (3.5-8.5)
[2018-06-25] MEDS ORDERED: LIDOCAINE 2% URO-JET 5 ML KIT MM ONE (12:02)
[2018-06-25 14:39] LABS: APPEARANCE,URINE SLIGHTLY-CLOUDY; BILIRUBIN,URINE NEGATIVE (NEGATIVE); COLOR,URINE YELLOW; GLUCOSE, URINE NEGATIVE (NEGATIVE); KETONES,URINE TRACE mg/dL (NEGATIVE); LEUKOCYTE ESTERASE,URINE NEGATIVE (NEGATIVE); NITRITE,URINE NEGATIVE (NEGATIVE); PROTEIN,URINE NEGATIVE (NEGATIVE); URINE SPECIFIC GRAVITY 1.024
--- NOTE | 2018-06-25 15:45 | PDOC PROGRESS REPORT ---
Subjective Progress Note for:: 06/25/18 Subjective:: RADHA DUBOIS is a 78 year old male with a past medical history of hypertension, dyslipidemia, remote coronary artery bypass graft and dementia admitted 06/21/2018 for sepsis secondary to sinusitis. The patient was seen on morning rounds. He was found resting in bed comfortably on room air. He was sleeping, but woke easily when I entered the room. He is conversationally appropriate and pleasantly confused. He complains of left arm/elbow pain today. He denies fever, headache, facial pain, chest pain, difficulty breathing, cough, and shoulder pain. Nursing having difficulty w/ straight caths (BPH) for management of urinary retention; coude patino placed. Reason For Visit: SEPSIS,ACUTE ENCEPHALOPHATHY,SINUSITIS Physical Exam Vital Signs: Temp Pulse Resp BP Pulse Ox 98.4 F 91 19 144/53 H 97 06/25/18 12:00 06/25/18 12:00 06/25/18 12:00 06/25/18 12:00 06/25/18 12:00 Intake & Output 06/24/18 06/25/18 06/26/18 06:59 06:59 06:59 Intake Total 1105 610 480 Output Total 1810 Balance 1105 -1200 480 Weight 85.4 kg 82.9 kg General appearance: PRESENT: no acute distress, hard of hearing, well-developed, well-nourished Head exam: PRESENT: atraumatic, normocephalic Eye exam: PRESENT: conjunctiva pink, EOMI, PERRLA. ABSENT: scleral icterus Mouth exam: PRESENT: moist, tongue midline Respiratory exam: PRESENT: clear to auscultation temitope, symmetrical, unlabored. ABSENT: rales, rhonchi, wheezes Cardiovascular exam: PRESENT: RRR. ABSENT: diastolic murmur, rubs, systolic murmur Pulses: PRESENT: normal dorsalis pedis pul Vascular exam: PRESENT: normal capillary refill GI/Abdominal exam: PRESENT: normal bowel sounds, soft, tenderness, other - distented bladder. ABSENT: distended, guarding, mass, organolmegaly, rebound Rectal exam: PRESENT: deferred Gentrourinary exam: PRESENT: indwelling catheter Extremities exam: PRESENT: full ROM. ABSENT: calf tenderness, clubbing, pedal edema Musculoskeletal exam: PRESENT: tenderness - Left elbow; slight erythema and warmth. Abrasion to posterior elbow noted. Neurological exam: PRESENT: alert, awake, oriented to person, CN II-XII grossly intact, other - pleasantly confused. ABSENT: motor sensory deficit Psychiatric exam: PRESENT: appropriate affect, normal mood. ABSENT: homicidal ideation, suicidal ideation Skin exam: PRESENT: dry, warm. ABSENT: cyanosis, rash Results Laboratory Results: 06/25/18 10:25 06/25/18 10:25 06/25/18 06/25/18 06/25/18 10:25 10:25 14:04 WBC 16.2 H RBC 3.80 L Hgb 11.9 L Hct 34.8 L MCV 92 MCH 31.4 MCHC 34.3 RDW 13.8 Plt Count 497 H Sodium 135.5 L Potassium 4.9 Chloride 99 Carbon Dioxide 29 Anion Gap 8 BUN 20 Creatinine 0.87 Est GFR ( Amer) > 60 Est GFR (Non-Af Amer) > 60 Glucose 165 H Uric Acid 4.4 Calcium 9.0 Urine Color YELLOW Urine Appearance SLIGHTLY-CLOUDY Urine pH 6.0 Ur Specific [place] 1.024 Urine Protein NEGATIVE Urine Glucose (UA) NEGATIVE Urine Ketones TRACE H Urine Blood NEGATIVE Urine Nitrite NEGATIVE Ur Leukocyte Esterase NEGATIVE Urine WBC (Auto) 4 Urine RBC (Auto) 6 06/20/18 06/20/18 23:40 23:40 Creatine Kinase 83 Troponin I < 0.012 Impressions: Cervical Spine CT 06/20/18 22:48 IMPRESSION: No acute findings. Head CT 06/20/18 22:48 IMPRESSION: Pansinusitis with air-fluid levels indicating acute inflammatory components. No acute intracranial finding. Shoulder X-Ray 06/20/18 22:48 IMPRESSION: No acute findings. Chest X-Ray 06/20/18 23:45 IMPRESSION: No acute cardiopulmonary findings. Assessment and Plan - Diagnosis (1) Sinusitis Qualifiers: Sinusitis location: unspecified location Chronicity: acute Recurrence: not specified as recurrent Qualified Code(s): J01.90 - Acute sinusitis, unspecified Is this a current diagnosis for this admission?: Yes Plan: Improved; patient is now comfortable, afebrile >48 hours Blood cultures negative at 4 days. Patient was admitted to the medical floor. He was empirically placed on Levaquin; transitioned to Augmentin for more directed therapy. Continue Flonase. [place] as needed. Tylenol as needed for fever/discomfort. Tramadol as needed for moderate pain. Avoid narcotics as able secondary to AMS. (2) Sepsis Qualifiers: Sepsis type: sepsis due to unspecified organism Qualified Code(s): A41.9 - Sepsis, unspecified organism Is this a current diagnosis for this admission?: Yes Plan: Resolved. Patient has been afebrile >48 hours, leukocytosis has trended down, clinically improved with increased orientation. Sepsis due to sinusitis, present on admission, evidenced by acute encephalopathy, fever (101), tachypnea (RR 25), leukocytosis (WBCs 23K) and acutely ill/toxic appearance. Blood cultures have no growth at 4 days Urinalysis is negative for UTI; urine culture negative at 2 day. Repeat urinalysis today is negative. Chest x-ray is benign. Lactic acid 1.6-> 0.8 Antibiotics as above. (3) Leukocytosis Is this a current diagnosis for this admission?: Yes Plan: Secondary to #1. Cultures and antibiotics as above. (4) Acute encephalopathy Is this a current diagnosis for this admission?: Yes Plan: Acute metabolic encephalopathy secondary to sepsis, sinusitis, acute urinary r etention, in the setting of dementia. Possibly worsened and/or prolonged resolution secondary to hospital environment (unfamiliar environment, poor sleep, etc). Improved; patient is now oriented to self, conversationally appropriate, easily reoriented and redirected as compared to progress day #1 when he was impulsive and incoherent. Not yet at baseline per family members who report that he is generally A&O to self and place, conversational, and capable of most ADLs independently. Continue to provide supportive care. Fall precautions. (5) Dementia Is this a current diagnosis for this admission?: Yes Plan: Patient's family member endorses baseline dementia. Recommend outpatient neurology follow-up. Fall and safety precautions. Discharge planning is consulted. (6) Debility Is this a current diagnosis for this admission?: Yes Plan: Secondary to acute illness and acute encephalopathy. At baseline, patient is independently ambulatory to the restroom with cane; he is currently requiring 2 person moderate assist for transfers. Requires consistent prompting and redirecting to maintain safety/stability. Patient's family member is interested in short-term SNF; did offer home health nursing, physical therapy, occupational therapy, and aide services; family member reports she can't provide for mobility needs at home. Physical therapy has been consulted; appreciate their evaluation recommendations. Discharge planning is consulted. (7) Urinary retention Is this a current diagnosis for this admission?: Yes Plan: Acute urinary retention overnight; distended bladder w/ abdominal discomfort. Bladder scan > 999 ml. Order for q 6 bladder scan w/ straight cath provided. Unfortunately, nursing had difficulty w/ inserting straight cath. Medications reviewed for possible causes. Repeat urinalysis is negative for UTI. Urojet provided; patino w/ coude tip inserted. Start Flomax. Will need outpatient Urology follow up. (8) Left elbow pain Is this a current diagnosis for this admission?: Yes Plan: Left elbow pain with slight erythema, edema, and warmth noted. Small abrasion to posterior elbow. Uric acid is negative. Xray pending. Elevate, ice, and tylenol for comfort. - Time Time Spent with patient: 35 or more minutes Medications reviewed and adjusted accordingly: Yes Anticipated discharge: SNF Within: when bed available
[2018-06-25] MEDS: TAMSULOSIN HCL 0.4 MG CAP.SR.24H PO SCH (17:54)
--- NOTE | 2018-06-25 17:58 | RADIOLOGY REPORT (SQ) ---
EXAM DESCRIPTION: ELBOW LEFT AP/LATERAL COMPLETED DATE/TIME: 06/25/2018 5:29 pm REASON FOR STUDY: pain, erythema, edema COMPARISON: None. NUMBER OF VIEWS: Two view. TECHNIQUE: AP and lateral radiographic images acquired of the left elbow. LIMITATIONS: None. FINDINGS: MINERALIZATION: Normal. BONES: No acute fracture or dislocation. No worrisome bone lesions. Small osteophytes. JOINT: No effusions. SOFT TISSUES: No soft tissue swelling. No foreign body. OTHER: No other significant finding. IMPRESSION: MILD DEGENERATIVE CHANGES. NO ACUTE FINDINGS. TECHNICAL DOCUMENTATION: JOB ID: [id number] [employer]- All Rights Reserved. Reading location - IP/workstation name: [email or web address]
[2018-06-25] MEDS: AMOXICILLIN TR/POT CLAVULANATE 500-125 MG TAB PO SCH (21:03)
[2018-06-26] MEDS: TRAMADOL HCL 50 MG TABLET PO PRN ×3 (03:35→23:47)
[2018-06-26] MEDS: AMOXICILLIN TR/POT CLAVULANATE 500-125 MG TAB PO SCH ×3 (05:26→21:46)
[2018-06-26] MEDS ORDERED: KETOROLAC TROMETHAMINE INJ/PF 30 MG/1 ML SDV IV PRN (06:18)
[2018-06-26 06:21] LABS: HEMATOCRIT 33.2 % (37.9-51.0); HEMOGLOBIN 11.4 g/dL (13.5-17.0); MEAN CORPUSCULAR HEMOGLOBIN 31.4 pg (27.0-33.4); MEAN CORPUSCULAR HGB CONC 34.2 g/dL (32.0-36.0); MEAN CORPUSCULAR VOLUME 92 fl (80-97); PLATELET COUNT 478 10^3/uL (150-450); RED BLOOD COUNT 3.62 10^6/uL (4.35-5.55); RED CELL DISTRIBUTION WIDTH 13.8 % (11.5-14.0); WHITE BLOOD COUNT 17.1 10^3/uL (4.0-10.5)
[2018-06-26] MEDS: HEPARIN SOD (PORCINE) 5,000 UNIT/ML 1 ML SYRINGE SUBCUT SCH ×3 (06:34→21:45)
[2018-06-26 06:44] LABS: ANION GAP 10 (5-19); BLOOD UREA NITROGEN 22 mg/dL (7-20); CARBON DIOXIDE 27 mmol/L (22-30); CHLORIDE 99 mmol/L (98-107); GLUCOSE 130 mg/dL (75-110); POTASSIUM 4.9 mmol/L (3.6-5.0); SODIUM 136.1 mmol/L (137-145)
[2018-06-26] MEDS: SODIUM CHLORIDE NASAL SPRAY 44 ML NASL SCH ×4 (07:50→21:46)
[2018-06-26] MEDS: OMEGA-3 ACID ETHYL ESTERS 1 GM CAPSULE PO SCH ×2 (10:30→17:21)
[2018-06-26] MEDS: CLOPIDOGREL BISULFATE 75 MG TABLET PO SCH (10:31)
[2018-06-26] MEDS: DOCUSATE SODIUM 100 MG CAPSULE PO SCH ×2 (10:31→17:21)
[2018-06-26] MEDS: CARVEDILOL 6.25 MG TABLET PO SCH ×2 (10:31→21:45)
[2018-06-26] MEDS: FLUTICASONE NASAL SPRAY 50 MCG/SPRY 120 SPRAY/16 GM NASL SCH ×2 (10:31→21:46)
[2018-06-26] MEDS: ASPIRIN 325 MG TABLET, ENT COATED PO SCH (10:31)
--- NOTE | 2018-06-26 13:41 | PDOC PROGRESS REPORT ---
Subjective Progress Note for:: 06/26/18 Subjective:: RADHA DUBOIS is a 78 year old male with a past medical history of hypertension, dyslipidemia, remote coronary artery bypass graft and dementia admitted 06/21/2018 for sepsis secondary to sinusitis. The patient was seen on morning rounds. He was found resting in bed comfortably on room air. He is alert and orientated to self and the year 1991. He is conversationally appropriate, but pleasantly confused. He continues to report left forearm pain today; he is noted to have an IV to the posterior aspect of his forearm (?phlebitis vs discomfort related to catheter/tape w/ complication). Otherwise, he states he is feeling well. He denies fever, headache, facial pain, chest pain, difficulty breathing, cough, and shoulder pain. No concerns per nursing. Reason For Visit: SEPSIS,ACUTE ENCEPHALOPHATHY,SINUSITIS Physical Exam Vital Signs: Temp Pulse Resp BP Pulse Ox 98.3 F 73 17 112/55 L 96 06/26/18 12:00 06/26/18 12:00 06/26/18 12:00 06/26/18 12:00 06/26/18 12:00 Intake & Output 06/25/18 06/26/18 06/27/18 06:59 06:59 06:59 Intake Total 610 660 Output Total 1810 800 Balance -1200 -140 Weight 82.9 kg 84.6 kg General appearance: PRESENT: no acute distress, hard of hearing, well-developed, well-nourished Head exam: PRESENT: atraumatic, normocephalic Eye exam: PRESENT: conjunctiva pink, EOMI, PERRLA. ABSENT: scleral icterus Mouth exam: PRESENT: moist, tongue midline Teeth exam: PRESENT: poor dentation Respiratory exam: PRESENT: clear to auscultation temitope, symmetrical, unlabored. ABSENT: rales, rhonchi, wheezes Cardiovascular exam: PRESENT: RRR. ABSENT: diastolic murmur, rubs, systolic murmur Pulses: PRESENT: normal dorsalis pedis pul Vascular exam: PRESENT: normal capillary refill GI/Abdominal exam: PRESENT: normal bowel sounds, soft. ABSENT: distended, guarding, mass, organolmegaly, rebound, tenderness Rectal exam: PRESENT: deferred Extremities exam: PRESENT: full ROM, tenderness - left forearm. ABSENT: calf tenderness, clubbing, pedal edema Neurological exam: PRESENT: alert, awake, oriented to person, CN II-XII grossly intact, other - Pleasantly confused. ABSENT: oriented to place, oriented to time, oriented to situation, motor sensory deficit Psychiatric exam: PRESENT: appropriate affect, normal mood. ABSENT: homicidal ideation, suicidal ideation Skin exam: PRESENT: dry, intact, warm. ABSENT: cyanosis, rash Results Laboratory Results: 06/26/18 05:22 06/26/18 05:22 06/25/18 06/26/18 06/26/18 14:04 05:22 05:22 WBC 17.1 H RBC 3.62 L Hgb 11.4 L Hct 33.2 L MCV 92 MCH 31.4 MCHC 34.2 RDW 13.8 Plt Count 478 H Sodium 136.1 L Potassium 4.9 Chloride 99 Carbon Dioxide 27 Anion Gap 10 BUN 22 H Creatinine 0.97 Est GFR ( Amer) > 60 Est GFR (Non-Af Amer) > 60 Glucose 130 H Calcium 9.0 Urine Color YELLOW Urine Appearance SLIGHTLY-CLOUDY Urine pH 6.0 Ur Specific [place] 1.024 Urine Protein NEGATIVE Urine Glucose (UA) NEGATIVE Urine Ketones TRACE H Urine Blood NEGATIVE Urine Nitrite NEGATIVE Ur Leukocyte Esterase NEGATIVE Urine WBC (Auto) 4 Urine RBC (Auto) 6 06/21/18 00:48 Blood Blood Culture - Final NO GROWTH IN 5 DAYS 06/20/18 23:40 Blood Blood Culture - Final NO GROWTH IN 5 DAYS 06/20/18 06/20/18 23:40 23:40 Creatine Kinase 83 Troponin I < 0.012 Impressions: Cervical Spine CT 06/20/18 22:48 IMPRESSION: No acute findings. Head CT 06/20/18 22:48 IMPRESSION: Pansinusitis with air-fluid levels indicating acute inflammatory components. No acute intracranial finding. Shoulder X-Ray 06/20/18 22:48 IMPRESSION: No acute findings. Chest X-Ray 06/20/18 23:45 IMPRESSION: No acute cardiopulmonary findings. Elbow X-Ray 06/25/18 00:00 IMPRESSION: MILD DEGENERATIVE CHANGES. NO ACUTE FINDINGS. Assessment and Plan - Diagnosis (1) Sinusitis Qualifiers: Sinusitis location: unspecified location Chronicity: acute Recurrence: not specified as recurrent Qualified Code(s): J01.90 - Acute sinusitis, unspecified Is this a current diagnosis for this admission?: Yes Plan: Improved; patient is now comfortable, afebrile >48 hours Blood cultures negative at 5 days. Patient was admitted to the medical floor. He was empirically placed on Levaquin; transitioned to Augmentin for more directed therapy. Continue Flonase. [place] as needed. Tylenol as needed for fever/discomfort. Tramadol as needed for moderate pain. Avoid narcotics as able secondary to AMS. (2) Sepsis Qualifiers: Sepsis type: sepsis due to unspecified organism Qualified Code(s): A41.9 - Sepsis, unspecified organism Is this a current diagnosis for this admission?: Yes Plan: Resolved. Patient has been afebrile >48 hours, clinically improved with increased orientation, VS stable. Sepsis due to sinusitis, present on admission, evidenced by acute encephalopathy, fever (101), tachypnea (RR 25), leukocytosis (WBCs 23K) and acutely ill/toxic appearance. Blood cultures have no growth at 5 days Urinalysis is negative for UTI; urine culture negative at 2 day. Repeat urinalysis yesterday is negative. Chest x-ray is benign. Lactic acid 1.6-> 0.8 Antibiotics as above. (3) Leukocytosis Is this a current diagnosis for this admission?: Yes Plan: Secondary to #1. Cultures and antibiotics as above. (4) Acute encephalopathy Is this a current diagnosis for this admission?: Yes Plan: Improved; patient is now oriented to self, conversationally appropriate, easily reoriented and redirected as compared to progress day #1 when he was impulsive and incoherent. Acute metabolic encephalopathy secondary to sepsis, sinusitis, acute urinary retention, in the setting of dementia. Possibly worsened and/or prolonged resolution secondary to hospital environment (unfamiliar environment, poor sleep, etc). Not yet at baseline per family members who report that he is generally A&O to se lf and place, conversational, and capable of most ADLs independently. Continue to provide supportive care. Fall precautions. (5) Dementia Is this a current diagnosis for this admission?: Yes Plan: Patient's family member endorses baseline dementia. Recommend outpatient neurology follow-up. Fall and safety precautions. Discharge planning is consulted. (6) Debility Is this a current diagnosis for this admission?: Yes Plan: Secondary to acute illness and acute encephalopathy. At baseline, patient is independently ambulatory to the restroom with cane; he is currently requiring 2 person moderate assist for transfers. Requires consistent prompting and redirecting to maintain safety/stability. Patient's family member is interested in short-term SNF; did offer home health nursing, physical therapy, occupational therapy, and aide services; family member reports she can't provide for mobility needs at home. Physical therapy has been consulted; appreciate their evaluation recommendations. Discharge planning is consulted. (7) Urinary retention Is this a current diagnosis for this admission?: Yes Plan: Acute urinary retention overnight; distended bladder w/ abdominal discomfort. Bladder scan > 999 ml. Order for q 6 bladder scan w/ straight cath provided. Unfortunately, nursing krause d difficulty w/ inserting straight cath. Medications reviewed for possible causes. Repeat urinalysis is negative for UTI. Urojet provided; patino w/ coude tip inserted. Continue Flomax. Will need outpatient Urology follow up. (8) Left elbow pain Is this a current diagnosis for this admission?: Yes Plan: Left elbow pain with slight erythema, edema. Today patient localizes his pain to the IV site. Small abrasion to posterior elbow. Uric acid is negative. Xray is negative. Elevate, ice, tylenol and tramadol for comfort. Remove IV; may leave IV out. - Time Time Spent with patient: 15-24 minutes Medications reviewed and adjusted accordingly: Yes Anticipated discharge: SNF Within: when bed available
[2018-06-26] MEDS: TAMSULOSIN HCL 0.4 MG CAP.SR.24H PO SCH (17:21)
[2018-06-26] MEDS: SIMVASTATIN 40 MG TABLET PO SCH (21:46)
[2018-06-27] MEDS: HEPARIN SOD (PORCINE) 5,000 UNIT/ML 1 ML SYRINGE SUBCUT SCH ×3 (06:47→21:55)
[2018-06-27] MEDS: TRAMADOL HCL 50 MG TABLET PO PRN ×3 (06:47→21:54)
[2018-06-27] MEDS: AMOXICILLIN TR/POT CLAVULANATE 500-125 MG TAB PO SCH ×3 (06:47→21:59)
[2018-06-27 07:44] LABS: HEMATOCRIT 36.6 % (37.9-51.0); HEMOGLOBIN 12.3 g/dL (13.5-17.0); MEAN CORPUSCULAR HEMOGLOBIN 30.8 pg (27.0-33.4); MEAN CORPUSCULAR HGB CONC 33.5 g/dL (32.0-36.0); MEAN CORPUSCULAR VOLUME 92 fl (80-97); PLATELET COUNT 551 10^3/uL (150-450); RED BLOOD COUNT 3.99 10^6/uL (4.35-5.55); RED CELL DISTRIBUTION WIDTH 13.8 % (11.5-14.0); WHITE BLOOD COUNT 13.2 10^3/uL (4.0-10.5)
[2018-06-27] MEDS: DOCUSATE SODIUM 100 MG CAPSULE PO SCH ×2 (09:31→17:31)
[2018-06-27] MEDS: OMEGA-3 ACID ETHYL ESTERS 1 GM CAPSULE PO SCH ×2 (09:31→17:31)
[2018-06-27] MEDS: ASPIRIN 325 MG TABLET, ENT COATED PO SCH (09:31)
[2018-06-27] MEDS: CLOPIDOGREL BISULFATE 75 MG TABLET PO SCH (09:31)
[2018-06-27] MEDS: FLUTICASONE NASAL SPRAY 50 MCG/SPRY 120 SPRAY/16 GM NASL SCH ×2 (09:32→21:56)
[2018-06-27] MEDS: SODIUM CHLORIDE NASAL SPRAY 44 ML NASL SCH ×4 (09:32→21:55)
[2018-06-27] MEDS: CARVEDILOL 6.25 MG TABLET PO SCH ×2 (09:32→21:55)
--- NOTE | 2018-06-27 14:18 | RADIOLOGY REPORT (SQ) ---
EXAM DESCRIPTION: VENOUS UNILATERAL UPPER COMPLETED DATE/TIME: 06/27/2018 2:03 pm REASON FOR STUDY: Left upper extremity edema, erythema, pain COMPARISON: None. TECHNIQUE: Dynamic and static hoffman scale and color images acquired of the left arm venous system. Se lected spectral images acquired with additional compression and augmentation maneuvers. The contralat eral subclavian vein and internal jugular vein were also imaged. Images stored on PACS. LIMITATIONS: None. FINDINGS: INTERNAL JUGULAR VEIN: Normal phasicity, compression, augmentation. No visualized echogeni c material on hoffman scale. No defects on color images. Comparison opposite side normal. SUBCLAVIAN VEIN: Normal compression, augmentation. No visualized echogenic material on hoffman scale. No defects on color images. AXILLARY VEIN: Normal compression, augmentation. No visualized echogenic material on hoffman scale. No d efects on color images. BRACHIAL VEIN: Normal compression, augmentation. No visualized echogenic material on hoffman scale. No d efects on color images. BASILIC VEIN: Normal compression, augmentation. No visualized echogenic material on hoffman scale. No de fects on color images. CEPHALIC VEIN: Normal compression, augmentation. No visualized echogenic material on hoffman scale. No d efects on color images. OTHER: No other significant finding. IMPRESSION: NO EVIDENCE DVT OR SVT LEFT ARM. TECHNICAL DOCUMENTATION: JOB ID: [id number] [employer]- All Rights Reserved Reading location - IP/workstation name: [email or web address]
--- NOTE | 2018-06-27 15:06 | PDOC TRANSFER SUMMARY ---
Addendum entered and electronically signed by LITZY MCCULLOUGH NP-C 06/27/18 15:56: Provider Note Provider Note: Addendum to debility) patient was ambulatory without assistive aid and independent of ADLs prior to admission for sepsis/sinusitis. The patient's [id number] indicates that he clearly has signs of dementia (repetitive questions, memory loss) but not behavioral disturbances. During this admission he has not had behavioral disturbances and has been consistently oriented to self, conversational, and socially appropriate. Unfortunately, he now has generalized weakness following his acute illness. Plan is to discharge to SNF for short-term rehab to increase mobility/independence. Likely will require less than 30 days of residential. Original Note: General - Admit/Disc Date/PCP Admission Date/Primary Care Provider: 06/21/18 17:37 GERDA TILLEY MD Discharge Date: 06/27/18 - Discharge Diagnosis (1) Sinusitis Is this a current diagnosis for this admission?: Yes Summary: Improved; patient is now comfortable, afebrile >48 hours, leukocytosis trending down. Blood cultures negative at 5 days. Patient was admitted to the medical floor. He was empirically placed on Levaquin; transitioned to p.o. Augmentin for more directed therapy. Continue daily Flonase and [employer] as needed. Tylenol as needed for fever/discomfort. (2) Sepsis Is this a current diagnosis for this admission?: Yes Summary: Resolved. Patient has been afebrile >48 hours, clinically improved with increased orientation, VS stable, leukocytosis trending down.. Sepsis due to sinusitis, present on admission, evidenced by acute encephalopathy, fever (101), tachypnea (RR 25), leukocytosis (WBCs 23K) and acutely ill/toxic appearance. Blood cultures have no growth at 5 days Urinalysis is negative for UTI; urine culture negative at 2 day. Repeat urinalysis negative. Chest x-ray is benign. Lactic acid 1.6-> 0.8 Antibiotics as above. (3) Leukocytosis Is this a current diagnosis for this admission?: Yes Summary: Secondary #1. Cultures and antibiotics as above. (4) Acute encephalopathy Is this a current diagnosis for this admission?: Yes Summary: Improved; patient is now oriented to self, conversationally appropriate, easily reoriented and redirected as compared to progress day #1 when he was impulsive and incoherent. Acute metabolic encephalopathy secondary to sepsis, sinusitis, acute urinary retention, in the setting of dementia. Possibly worsened and/or prolonged resolution secondary to hospital environment (unfamiliar environment, poor slee p, etc). Not yet at baseline per family members who report that he is generally A&O to self and place, conversational, and capable of most ADLs independently. Discussed with family members that his mentation likely will not improve until he returns to his home environment; may experience slight worsening initially after transfer to SNF. Family reports that they understand and are encouraged by his slow improvements. Continue to provide supportive care. Fall precautions. (5) Dementia Is this a current diagnosis for this admission?: Yes Summary: Patient's family member endorses baseline dementia. Recommend outpatient neurolopsych follow-up. Fall and safety precautions. (6) Debility Is this a current diagnosis for this admission?: Yes Summary: Secondary to acute illness and acute encephalopathy. At baseline, patient is independently ambulatory to the restroom with cane; he is currently requiring 2 person moderate assist for transfers. Requires co nsistent prompting and redirecting to maintain safety/stability. Physical therapy has been consulted; recommend continued PT on discharge. Discharge planning is consulted; patient's family requesting short term rehab. (7) Urinary retention Is this a current diagnosis for this admission?: Yes Summary: Acute urinary retention overnight; distended bladder w/ abdominal discomfort. Bladder scan > 999 ml. Order for q 6 bladder scan w/ straight cath provided. Unfortunately, nursing had difficulty w/ inserting straight cath. Medications reviewed for possible causes. Repeat urinalysis is negative for UTI. Patient was started on Flomax. [place] catheter is placed. Recommend outpatient Urology follow up. (8) Left elbow pain Is this a current diagnosis for this admission?: Yes Summary: Left elbow pain with slight erythema, edema. Today patient localizes his pain to the IV site. Small abrasion to posterior elbow. Uric acid is negative. Xray is negative. Venous doppler is negative for thrombus, SVT, DVT IV from posterior forearm has been removed; pain likely related to IV placement. Continue to observe for clear indications of infection or phlebitis. Elevate, ice or heat for comfort, and as needed tylenol and tramadol for pain. - Additional Information Resuscitation Status: Full Code Discharge Diet: Cardiac Discharge Activity: Activity As Tolerated, Balance Activity w/Rest, Slowly Increase Activity, Supervised Activity Prescriptions: Amox Tr/Potassium Clavulanate [Augmentin "500" Tablet] 1 tab PO Q8 #21 tablet Docusate Sodium [Colace 100 mg Capsule] 100 mg PO BID #60 capsule Fluticasone Propionate [Flonase Nasal [employer] 50 Mcg/[employer] 16 gm] 2 spray NASL Q12 #1 spray.pump Tamsulosin HCl [Flomax 0.4 mg Cap.sr] 0.4 mg PO PCSUPPER #30 cap.sr.24h Tramadol HCl [Ultram 50 mg Tablet] 50 mg PO Q6HP PRN #20 tablet PRN Reason: Home Medications: Ascorbic Acid [Vitamin C 500 mg Tablet] 1,000 mg PO DAILY 06/21/18 Aspirin [Ecotrin 325 mg EC Tablet] 325 mg PO DAILY 06/21/18 Carvedilol [Coreg 6.25 mg Tablet] 6.25 mg PO Q12 06/21/18 Cholecalciferol (Vitamin D3) [Vitamin D3 1000 Unit Tablet] 2,000 unit PO DAILY 06/21/18 Clopidogrel Bisulfate [Plavix 75 mg Tablet] 75 mg PO DAILY 06/21/18 Cyanocobalamin (Vitamin B-12) [Vitamin B-12 1000 mcg Tablet] 2,000 mcg PO DAILY 06/21/18 [place]-3 Fatty Acids/Fish Oil [Fish Oil 1,000 mg Capsule] 3 cap PO BID 06/21/18 Simvastatin [Zocor 40 mg Tablet] 40 mg PO QHS 06/21/18 Zinc [Zinc Chelated] 100 mg PO DAILY 06/21/18 Acetaminophen [Tylenol 325 mg Tablet] 650 mg PO Q4HP PRN tablet 06/27/18 Amox Tr/Potassium Clavulanate [Augmentin "500" Tablet] 1 tab PO Q8 #21 tablet 06/27/18 Docusate Sodium [Colace 100 mg Capsule] 100 mg PO BID #60 capsule 06/27/18 Fluticasone Propionate [Flonase Nasal [employer] 50 Mcg/[employer] 16 gm] 2 spray NASL Q12 #1 spray.pump 06/27/18 Sodium Chloride [[place] Nasal [employer] 44 ml Bottle] 1 spray NASL ACHS bottle 06/27/18 Tamsulosin HCl [Flomax 0.4 mg Cap.sr] 0.4 mg PO PCSUPPER #30 cap.sr.24h 06/27/18 Tramadol HCl [Ultram 50 mg Tablet] 50 mg PO Q6HP PRN #20 tablet 06/27/18 History of Present Illness Admission Date/PCP: 06/21/18 17:37 GERDA TILLEY MD History of Present Illness: H&P per Dr. Lyons: RADHA DUBOIS is a 78 year old male with a past medical history of hypertension, dyslipidemia, remote coronary artery bypass graft and dementia. Patient is from [facility] and noted to have mental status changes of the last 24 hours associated with a fever. He is also noted to have rhinorrhea and a postnasal drip. Workup reveals leukocytosis in the 20s. CT reveals pansinusitis with air-fluid levels. He started on empiric antibiotics and referred to the hospitalist for admission. Patient denies recen t antibiotic use and complains of fullness in the ears. Hospital Course Hospital Course: Evaluation and management as above. At time of this dictation, the patient is stable and medically ready for discharge to SNF. Any clinical changes will be dictated as an addendum to this note at discharge. Physical Exam Vital Signs: Temp Pulse Resp BP Pulse Ox 97.6 F 84 18 141/73 H 98 06/27/18 11:54 06/27/18 11:54 06/27/18 11:54 06/27/18 11:54 06/27/18 11:54 Intake & Output 06/26/18 06/27/18 06/28/18 06:59 06:59 06:59 Intake Total 660 960 Output Total 800 1175 Balance -140 -215 Weight 84.6 kg 81.8 kg General appearance: PRESENT: no acute distress, hard of hearing, well-developed, well-nourished Head exam: PRESENT: atraumatic, normocephalic Eye exam: PRESENT: conjunctiva pink, EOMI, PERRLA. ABSENT: scleral icterus Mouth exam: PRESENT: moist, tongue midline Teeth exam: PRESENT: poor dentation Neck exam: ABSENT: carotid bruit, JVD, lymphadenopathy, thyromegaly Respiratory exam: PRESENT: clear to auscultation temitope, symmetrical, unlabored. ABSENT: rales, rhonchi, wheezes Cardiovascular exam: PRESENT: RRR. ABSENT: diastolic murmur, rubs, systolic murmur Pulses: PRESENT: normal dorsalis pedis pul Vascular exam: PRESENT: normal capillary refill GI/Abdominal exam: PRESENT: normal bowel sounds, soft. ABSENT: distended, guarding, mass, organolmegaly, rebound, tenderness Rectal exam: PRESENT: deferred Gentrourinary exam: PRESENT: indwelling catheter Extremities exam: PRESENT: full ROM, tenderness - Left posterior forearm and elbow. ABSENT: calf tenderness, clubbing, pedal edema Neurological exam: PRESENT: alert, awake, oriented to person, CN II-XII grossly intact, other - Pleasantly confused. ABSENT: motor sensory deficit Psychiatric exam: PRESENT: appropriate affect, normal mood. ABSENT: homicidal ideation, suicidal ideation Skin exam: PRESENT: dry, intact, warm. ABSENT: cyanosis, rash Results Laboratory Results: 06/27/18 07:02 06/26/18 05:22 06/27/18 07:02 WBC 13.2 H RBC 3.99 L Hgb 12.3 L Hct 36.6 L MCV 92 MCH 30.8 MCHC 33.5 RDW 13.8 Plt Count 551 H 06/20/18 06/20/18 23:40 23:40 Creatine Kinase 83 Troponin I < 0.012 Impressions: Cervical Spine CT 06/20/18 22:48 IMPRESSION: No acute findings. Head CT 06/20/18 22:48 IMPRESSION: Pansinusitis with air-fluid levels indicating acute inflammatory components. No acute intracranial finding. Shoulder X-Ray 06/20/18 22:48 IMPRESSION: No acute findings. Chest X-Ray 06/20/18 23:45 IMPRESSION: No acute cardiopulmonary findings. Elbow X-Ray 06/25/18 00:00 IMPRESSION: MILD DEGENERATIVE CHANGES. NO ACUTE FINDINGS. Venous Doppler Study 06/27/18 09:12 IMPRESSION: NO EVIDENCE DVT OR SVT LEFT ARM. Transfer Plan - Time Spent with Patient Time spent with patient: Less than 30 Minutes Qualifiers - * PATIENT BEING DISCHARGED WITH ANY OF THE FOLLOWING DIAGNOSIS: No Plan Discharge Plan: Patient is discharged to SNF for short-term rehab. Complete course of Augmentin for treatment of acute sinusitis. Follow-up with urology in 2-4 weeks for acute urinary retention. Has been sta rted on Flomax. Recommend following up with PCP within 1 week of from SNF. Recommend Neurophysch follow up for evaluation/management of dementia. Time Spent: Greater than 30 Minutes
[2018-06-27] MEDS: TAMSULOSIN HCL 0.4 MG CAP.SR.24H PO SCH (17:31)
[2018-06-27] MEDS: SIMVASTATIN 40 MG TABLET PO SCH (21:56)
[2018-06-28] MEDS: AMOXICILLIN TR/POT CLAVULANATE 500-125 MG TAB PO SCH ×2 (05:29→15:07)
[2018-06-28] MEDS: HEPARIN SOD (PORCINE) 5,000 UNIT/ML 1 ML SYRINGE SUBCUT SCH ×2 (05:29→15:07)
[2018-06-28] MEDS: TRAMADOL HCL 50 MG TABLET PO PRN ×2 (05:38→16:47)
[2018-06-28] MEDS: SODIUM CHLORIDE NASAL SPRAY 44 ML NASL SCH ×3 (07:52→15:59)
[2018-06-28] MEDS: DOCUSATE SODIUM 100 MG CAPSULE PO SCH (09:35)
[2018-06-28] MEDS: ASPIRIN 325 MG TABLET, ENT COATED PO SCH (09:35)
[2018-06-28] MEDS: CARVEDILOL 6.25 MG TABLET PO SCH (09:35)
[2018-06-28] MEDS: FLUTICASONE NASAL SPRAY 50 MCG/SPRY 120 SPRAY/16 GM NASL SCH (09:36)
[2018-06-28] MEDS: OMEGA-3 ACID ETHYL ESTERS 1 GM CAPSULE PO SCH (09:36)
[2018-06-28] MEDS: CLOPIDOGREL BISULFATE 75 MG TABLET PO SCH (09:36)
[2018-06-28 16:09] VITALS: BP 146/94
--- NOTE | 2018-06-28 22:03 | PDOC PROGRESS REPORT ---
Subjective Progress Note for:: 06/28/18 Subjective:: Awaiting transfer to [facility] facility Reason For Visit: SEPSIS,ACUTE ENCEPHALOPHATHY,SINUSITIS Physical Exam Vital Signs: Temp Pulse Resp BP Pulse Ox 97.9 F 82 21 H 119/42 L 96 06/28/18 08:00 06/28/18 08:00 06/28/18 08:00 06/28/18 08:00 06/28/18 08:00 Intake & Output 06/27/18 06/28/18 06/29/18 06:59 06:59 06:59 Intake Total 960 360 Output Total 1175 1275 Balance -215 -915 Weight 81.8 kg 82 kg General appearance: PRESENT: no acute distress, cooperative, well-developed Head exam: PRESENT: atraumatic, normocephalic Ear exam: PRESENT: normal external ear exam Respiratory exam: PRESENT: clear to auscultation temitope, symmetrical, unlabored. ABSENT: accessory muscle use, rales, rhonchi, wheezes Cardiovascular exam: PRESENT: RRR, +S1, +S2, systolic murmur - 2/6 GI/Abdominal exam: PRESENT: normal bowel sounds, soft. ABSENT: distended, guarding, tenderness Rectal exam: PRESENT: deferred Extremities exam: ABSENT: pedal edema Neurological exam: PRESENT: alert, awake, oriented to person, oriented to place Psychiatric exam: PRESENT: appropriate affect. ABSENT: agitated, anxious Results Laboratory Results: 06/27/18 07:02 06/26/18 05:22 06/20/18 06/20/18 23:40 23:40 Creatine Kinase 83 Troponin I < 0.012 Impressions: Cervical Spine CT 06/20/18 22:48 IMPRESSION: No acute findings. Head CT 06/20/18 22:48 IMPRESSION: Pansinusitis with air-fluid levels indicating acute inflammatory components. No acute intracranial finding. Shoulder X-Ray 06/20/18 22:48 IMPRESSION: No acute findings. Chest X-Ray 06/20/18 23:45 IMPRESSION: No acute cardiopulmonary findings. Elbow X-Ray 06/25/18 00:00 IMPRESSION: MILD DEGENERATIVE CHANGES. NO ACUTE FINDINGS. Venous Doppler Study 06/27/18 09:12 IMPRESSION: NO EVIDENCE DVT OR SVT LEFT ARM. Assessment and Plan - Diagnosis (1) Sinusitis Qualifiers: Sinusitis location: unspecified location Chronicity: acute Recurrence: not specified as recurrent Qualified Code(s): J01.90 - Acute sinusitis, unspecified Is this a current diagnosis for this admission?: Yes Plan: The patient has been accepted at a [facility] facility. Please see the complete transfer summary dictated by the nurse practitioner yesterday. The patient will complete antibiotic therapy at the facility. (2) Debility Is this a current diagnosis for this admission?: Yes Plan: The patient will be transitioning to [facility] facility for ongoing rehab to improve strength and conditioning. See the full dictated transfer summary by Corinna Cortez. - Time Time Spent with patient: Less than 15 minutes Medications reviewed and adjusted accordingly: Yes Anticipated discharge: SNF Within: within 24 hours
== END 2018-06-28 17:06 | DRG 872 ==
LOC: ER 22:03 → EH 06-21 03:13 → 4N 06-21 08:32 → OBSVTOIN 06-21 17:37
PROVIDERS: ADMIT Internal Medicine; ATTEND Internal Medicine
PROC: 3E0F73Z Introduction of Anti-inflammatory into Respiratory Tract, Via Natural or Artificial Opening (ICD-10-PCS; principal; 2018-06-21)
DX: A41.9 Sepsis, unspecified organism (principal); F03.90 Unspecified dementia, unspecified severity, without behavioral disturbance, psychotic disturbance, mood disturbance, and anxiety; R53.81 Other malaise; R33.9 Retention of urine, unspecified; M25.522 Pain in left elbow; I10 Essential (primary) hypertension; E78.5 Hyperlipidemia, unspecified; I25.10 Atherosclerotic heart disease of native coronary artery without angina pectoris; J32.4 Chronic pansinusitis; J01.90 Acute sinusitis, unspecified; Z79.899 Other long term (current) drug therapy; Z95.1 Presence of aortocoronary bypass graft; Z82.49 Family history of ischemic heart disease and other diseases of the circulatory system
CPT/HCPCS: 36415; 70450; 71045; 72125; 80048; 80053; 81001; 82550; 83605; 84484; 84550; 85025; 85027; 87040; 87086; 87804; 93005; 93010; 93971; 96361; 96365; 96366; 96367; 99285; C1758; G0378; J0692; J1644; J1885; J1956; J3490; J7030; J7620

== ENCOUNTER → 2018-07-19 | Outpatient (CLI) | payer OTHER ==
[2018-07-19 11:10] LABS: ABSOLUTE BASOPHILS # (AUTO) 0.1 10^3/uL (0.0-0.2); ABSOLUTE EOSINOPHILS # (AUTO) 0.4 10^3/uL (0.0-0.6); ABSOLUTE LYMPHOCYTES (AUTO) 2.1 10^3/uL (0.5-4.7); ABSOLUTE MONOCYTES (AUTO) 0.5 10^3/uL (0.1-1.4); ABSOLUTE NEUT (AUTO) 6.1 10^3/uL (1.7-8.2); BASOPHILS % (AUTO) 1.1 % (0-2); EOSINOPHILS % (AUTO) 3.9 % (0-6); HEMATOCRIT 31.5 % (37.9-51.0); HEMOGLOBIN 10.5 g/dL (13.5-17.0); LYMPHOCYTES % (AUTO) 23.1 % (13-45); MEAN CORPUSCULAR HEMOGLOBIN 30.7 pg (27.0-33.4); MEAN CORPUSCULAR HGB CONC 33.4 g/dL (32.0-36.0); MEAN CORPUSCULAR VOLUME 92 fl (80-97); MONOCYTES % (AUTO) 5.4 % (3-13); PLATELET COUNT 417 10^3/uL (150-450); RED BLOOD COUNT 3.42 10^6/uL (4.35-5.55); RED CELL DISTRIBUTION WIDTH 15.6 % (11.5-14.0); SEGMENTED NEUTROPHILS % (AUTO) 66.5 % (42-78); TOTAL CELLS COUNTED % (AUTO) 100 %; WHITE BLOOD COUNT 9.2 10^3/uL (4.0-10.5)
[2018-07-19 11:18] LABS: ALANINE AMINOTRANSFERASE 52 U/L (21-72); ALBUMIN 3.3 g/dL (3.5-5.0); ALKALINE PHOSPHATASE 82 U/L (38-126); ANION GAP 8 (5-19); ASPARTATE AMINO TRANSFERASE 35 U/L (17-59); BILIRUBIN,DIRECT 0.3 mg/dL (0.0-0.4); BILIRUBIN,TOTAL 0.4 mg/dL (0.2-1.3); BLOOD UREA NITROGEN 12 mg/dL (7-20); CALCIUM 9.3 mg/dL (8.4-10.2); CARBON DIOXIDE 28 mmol/L (22-30); CHLORIDE 107 mmol/L (98-107); CHOLESTEROL 120.43 mg/dL (0-200); GLUCOSE 102 mg/dL (75-110); POTASSIUM 5.1 mmol/L (3.6-5.0); SODIUM 142.9 mmol/L (137-145); TOTAL PROTEIN 6.2 g/dL (6.3-8.2); TRIGLYCERIDES 114 mg/dL (<150)
[2018-07-19 11:29] LABS: DIRECT LDL 76 mg/dL (<100)
== END ==
LOC: OD 09:41
PROVIDERS: ATTEND Family Medicine Geriatric Medicine
DX: D50.9 Iron deficiency anemia, unspecified (principal); E78.5 Hyperlipidemia, unspecified; I10 Essential (primary) hypertension; E55.9 Vitamin D deficiency, unspecified; Z79.899 Other long term (current) drug therapy; N40.1 Benign prostatic hyperplasia with lower urinary tract symptoms
CPT/HCPCS: 36415; 80053; 80061; 82306; 82607; 84153; 84443; 85025

== ENCOUNTER → 2018-08-26 | Outpatient (CLI) | payer OTHER ==
[2018-08-26 12:58] LABS: ABSOLUTE BASOPHILS # (AUTO) 0.1 10^3/uL (0.0-0.2); ABSOLUTE EOSINOPHILS # (AUTO) 0.3 10^3/uL (0.0-0.6); ABSOLUTE LYMPHOCYTES (AUTO) 2.6 10^3/uL (0.5-4.7); ABSOLUTE MONOCYTES (AUTO) 0.7 10^3/uL (0.1-1.4); ABSOLUTE NEUT (AUTO) 4.7 10^3/uL (1.7-8.2); BASOPHILS % (AUTO) 0.9 % (0-2); EOSINOPHILS % (AUTO) 3.4 % (0-6); HEMATOCRIT 41.9 % (37.9-51.0); LYMPHOCYTES % (AUTO) 31.3 % (13-45); MEAN CORPUSCULAR HEMOGLOBIN 30.4 pg (27.0-33.4); MEAN CORPUSCULAR HGB CONC 33.4 g/dL (32.0-36.0); MEAN CORPUSCULAR VOLUME 91 fl (80-97); MONOCYTES % (AUTO) 8.5 % (3-13); PLATELET COUNT 221 10^3/uL (150-450); RED BLOOD COUNT 4.59 10^6/uL (4.35-5.55); RED CELL DISTRIBUTION WIDTH 16.3 % (11.5-14.0); SEGMENTED NEUTROPHILS % (AUTO) 55.9 % (42-78); TOTAL CELLS COUNTED % (AUTO) 100 %; WHITE BLOOD COUNT 8.4 10^3/uL (4.0-10.5)
== END ==
LOC: OD 11:38
PROVIDERS: ATTEND Family Medicine Geriatric Medicine
DX: D50.9 Iron deficiency anemia, unspecified (principal); E87.5 Hyperkalemia; Z79.899 Other long term (current) drug therapy
CPT/HCPCS: 36415; 84132; 85025

== ENCOUNTER → 2018-11-01 | Outpatient (CLI) | payer OTHER ==
--- NOTE | 2018-11-01 14:37 | RADIOLOGY REPORT (SQ) ---
EXAM DESCRIPTION: CHEST PA/LATERAL COMPLETED DATE/TIME: 11/01/2018 1:24 pm REASON FOR STUDY: BRONCHITIS, NOT SPECIFIED ACUTE OR CHRONIC COMPARISON: 06/21/2018 EXAM PARAMETERS: NUMBER OF VIEWS: two views TECHNIQUE: Digital Frontal and Lateral radiographic views of the chest acquired. RADIATION DOSE: NA LIMITATIONS: none FINDINGS: LUNGS AND PLEURA: No opacities, masses or pneumothorax. No pleural effusion. MEDIASTINUM AND HILAR STRUCTURES: No masses or contour abnormalities. HEART AND VASCULAR STRUCTURES: Heart normal size. No evidence for failure. BONES: No acute findings. HARDWARE: Sternotomy wires are in place. OTHER: Curvilinear air collection along the left hemidiaphragm most likely represents air-fluid level within the stomach. IMPRESSION: NO SIGNIFICANT RADIOGRAPHIC FINDING IN THE CHEST. TECHNICAL DOCUMENTATION: JOB ID: [id number] [employer]- All Rights Reserved Reading location - IP/workstation name: [email or web address]
[2018-11-03 08:52] LABS: ABSOLUTE BASOPHILS # (AUTO) 0.1 10^3/uL (0.0-0.2); ABSOLUTE EOSINOPHILS # (AUTO) 0.3 10^3/uL (0.0-0.6); ABSOLUTE LYMPHOCYTES (AUTO) 2.2 10^3/uL (0.5-4.7); ABSOLUTE MONOCYTES (AUTO) 0.6 10^3/uL (0.1-1.4); BASOPHILS % (AUTO) 0.6 % (0-2); EOSINOPHILS % (AUTO) 3.9 % (0-6); HEMATOCRIT 47.7 % (37.9-51.0); HEMOGLOBIN 16.2 g/dL (13.5-17.0); MEAN CORPUSCULAR HEMOGLOBIN 30.3 pg (27.0-33.4); MEAN CORPUSCULAR HGB CONC 33.9 g/dL (32.0-36.0); MEAN CORPUSCULAR VOLUME 89 fl (80-97); MONOCYTES % (AUTO) 7.2 % (3-13); PLATELET COUNT 201 10^3/uL (150-450); RED BLOOD COUNT 5.34 10^6/uL (4.35-5.55); RED CELL DISTRIBUTION WIDTH 14.4 % (11.5-14.0); SEGMENTED NEUTROPHILS % (AUTO) 61.3 % (42-78); TOTAL CELLS COUNTED % (AUTO) 100 %; WHITE BLOOD COUNT 8.1 10^3/uL (4.0-10.5)
[2018-11-03 09:23] LABS: CHOLESTEROL 135.19 mg/dL (0-200); TRIGLYCERIDES 219 mg/dL (<150)
[2018-11-03 09:33] LABS: DIRECT LDL 85 mg/dL (<100)
[2018-11-03 09:36] LABS: VLDL CHOLESTEROL 43.8 mg/dL (10-31)
== END ==
LOC: OD 13:11
PROVIDERS: ATTEND Family Medicine Geriatric Medicine
DX: D64.9 Anemia, unspecified (principal); J40 Bronchitis, not specified as acute or chronic; E78.5 Hyperlipidemia, unspecified; I25.10 Atherosclerotic heart disease of native coronary artery without angina pectoris; K21.9 Gastro-esophageal reflux disease without esophagitis
CPT/HCPCS: 36415; 71046; 80061; 84460; 85025

== ENCOUNTER → 2018-11-21 | Outpatient (CLI) | payer MEDICARE, OTHER ==
[~2018-11-21] MED LIST: ALBUTEROL SULFATE 0.083% NEB 2.5 MG/3 ML AMPUL NEB ONE
--- NOTE | 2018-11-21 12:42 | Pulmonary Function Test ---
Pulmonary Function Test Date of Procedure:: 11/21/18 INDICATION:: Dyspnea Referring Provider: Dr. Kellogg Conduit Worker: Claribel Strickland, MEDICAL [employer], [employer] - Report Spirometry: Spirometry: pre-FVC: 3.45 L 90% post-FVC 3.49 L 91% pre-FEV:1 2.53 L 85% post-FEV1; 2.51 L 84% pre-FEV1/FVC % 73 post-FEV1/FVC% 72 predicted 77 [id number]% 1.89 L 66% [id number]% 1.70 L 69% Lung Volume: Total lung capacity: 5.28 L 83% Vital capacity: 3.51 L 91% Inspiratory capacity: 3.05 L FRC N2: 2.23 L 60% ERV: RV: 1.77 L 65% RV/TLC %: 34 predicted 44 Diffusion Capactity: DLCO 17.4 93% DLCO/VA 3.78 111% Impression: Mild obstructive ventilatory defect defect is implied by the decrease in flow at the FEF 25-75%. No restrictive ventilatory defect. No hyperinflation or air trapping. Normal diffusion capacity.
== END ==
LOC: RT 09:33
PROVIDERS: ATTEND Family Medicine Geriatric Medicine
DX: R06.2 Wheezing (principal)
CPT/HCPCS: 94729; 94727; 94060; A9270

== ENCOUNTER → 2019-01-02 | Outpatient (CLI) | payer OTHER ==
[2019-01-02 09:53] LABS: ABSOLUTE BASOPHILS # (AUTO) 0.1 10^3/uL (0.0-0.2); ABSOLUTE EOSINOPHILS # (AUTO) 0.3 10^3/uL (0.0-0.6); ABSOLUTE MONOCYTES (AUTO) 0.6 10^3/uL (0.1-1.4); ABSOLUTE NEUT (AUTO) 5.6 10^3/uL (1.7-8.2); BASOPHILS % (AUTO) 0.7 % (0-2); EOSINOPHILS % (AUTO) 3.1 % (0-6); HEMATOCRIT 46.1 % (37.9-51.0); HEMOGLOBIN 15.9 g/dL (13.5-17.0); LYMPHOCYTES % (AUTO) 23.2 % (13-45); MEAN CORPUSCULAR HEMOGLOBIN 31.8 pg (27.0-33.4); MEAN CORPUSCULAR HGB CONC 34.6 g/dL (32.0-36.0); MEAN CORPUSCULAR VOLUME 92 fl (80-97); MONOCYTES % (AUTO) 6.9 % (3-13); PLATELET COUNT 179 10^3/uL (150-450); RED BLOOD COUNT 5.02 10^6/uL (4.35-5.55); RED CELL DISTRIBUTION WIDTH 14.1 % (11.5-14.0); SEGMENTED NEUTROPHILS % (AUTO) 66.1 % (42-78); TOTAL CELLS COUNTED % (AUTO) 100 %; WHITE BLOOD COUNT 8.5 10^3/uL (4.0-10.5)
[2019-01-02 10:17] LABS: CHOLESTEROL 138.33 mg/dL (0-200); TRIGLYCERIDES 135 mg/dL (<150)
[2019-01-02 10:22] LABS: DIRECT LDL 81 mg/dL (<100)
== END ==
LOC: OD 08:45
PROVIDERS: ATTEND Family Medicine Geriatric Medicine
DX: D64.9 Anemia, unspecified (principal); K21.9 Gastro-esophageal reflux disease without esophagitis; E78.5 Hyperlipidemia, unspecified; I25.10 Atherosclerotic heart disease of native coronary artery without angina pectoris
CPT/HCPCS: 36415; 80061; 84460; 85025

== ENCOUNTER → 2019-03-03 | Outpatient (CLI) | payer OTHER ==
[2019-03-03 10:17] LABS: ANION GAP 11 (5-19); BLOOD UREA NITROGEN 15 mg/dL (7-20); CALCIUM 9.8 mg/dL (8.4-10.2); CARBON DIOXIDE 29 mmol/L (22-30); CHLORIDE 103 mmol/L (98-107); GLUCOSE 100 mg/dL (75-110); POTASSIUM 4.3 mmol/L (3.6-5.0)
== END ==
LOC: OD 08:46
PROVIDERS: ATTEND Family Medicine Geriatric Medicine
DX: I10 Essential (primary) hypertension (principal); Z79.899 Other long term (current) drug therapy
CPT/HCPCS: 36415; 80048